=== PATIENT | female | born 1945 | race Caucasian/White ===

== ENCOUNTER 2019-10-03 14:17 | Outpatient (CLI) | payer MEDICARE, SELFPAY ==
[2019-10-16 10:43] LABS: Miscellaneous Test See Scanned Lab Rpt
== END 2019-10-03 14:18 | disposition home or self-care (01) ==
LOC: ONCMED 14:24
PROVIDERS: PCP Family Medicine; Referring Provider Surgery; Visit Provider Internal Medicine Hematology & Oncology
DX: C18.8 Malignant neoplasm of overlapping sites of colon (principal); C77.2 Secondary and unspecified malignant neoplasm of intra-abdominal lymph nodes; Z90.49 Acquired absence of other specified parts of digestive tract
CPT/HCPCS: 88341; 88342; 99205

== ENCOUNTER 2019-10-17 08:45 | Outpatient (CLI) | payer MEDICARE, SELFPAY ==
[2019-10-17 15:20] LABS: Basophils % 0.5 %; Eosinophils % 0.7 %; Hemoglobin 13.8 g/dL (11.5-15.3); Lymphocytes # 1.9 10^3/uL (0.8-4.8); Lymphocytes % 31.9 %; Mean Corpuscular HGB Conc 32.1 g/dL (30.0-36.0); Mean Corpuscular Volume 102.9 fL (81-99); Mean Platelet Volume 12.9 fL (7.4-10.4); Monocytes # 0.4 10^3/uL (0.2-0.9); Monocytes % 7.1 %; Neutrophils # 3.5 10^3/uL (1.8-7.7); Neutrophils % 59.5 %; Nucleated Red Blood Cells % 0 %; Platelet Count 162 10^3/cmm (130-400); Red Blood Count 4.18 10^6/uL (4.1-5.3); Red Cell Distribution Width 13.4 % (12.1-15.1); White Blood Count 5.9 10^3/uL (4.0-10.0)
[2019-10-17 19:50] LABS: Alanine Aminotransferase 15 U/L (0-33); Albumin Level 4.2 g/dL (3.5-5.2); Alkaline Phosphatase 69 IU/L (35-105); Anion Gap 19.9 (5-19); Aspartate Amino Transferase 22 U/L (0-32); Blood Urea Nitrogen 12 mg/dL (8-23); Calcium 9.9 mg/dL (8.5-10.5); Carbon Dioxide 24 mmol/L (22-29); Chloride 103 mmol/L (98-107); Globulin 3.4 g/dL (1.3-4.6); Glucose 102 mg/dL (65-115); Potassium 3.9 mmol/L (3.5-5.1); Sodium 143 mmol/L (136-145); Total Bilirubin 0.7 mg/dL (0.15-1.2); Total Protein 7.6 g/dL (6.6-8.7)
== END 2019-10-17 08:46 | disposition home or self-care (01) ==
LOC: ONCMED 16:01
PROVIDERS: PCP Family Medicine; Visit Provider Internal Medicine Hematology & Oncology
DX: C18.8 Malignant neoplasm of overlapping sites of colon (principal); C77.2 Secondary and unspecified malignant neoplasm of intra-abdominal lymph nodes
CPT/HCPCS: 80053; 85025

== ENCOUNTER 2019-10-18 11:58 | Outpatient (CLI) | payer MEDICARE, SELFPAY ==
--- NOTE | 2019-10-18 15:05 | N.ONRAD NP_ITS ---
Radiation Oncology New Patient Visit Patient: Meera Begum MR#: [id number] : 1945> Age: 73> Sex: Female> Dictated by: Dr. Jose Angel Ricks Date of Service: 10/18/2019 Referring Physician(s) : Dr. 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 Previous Treatment: Right hemicolectomy and cholecystectomy on September 05, 2019 Chief Complaint: Colon cancer History of Present Illness: This is a 73 y/o woman who presented with abdominal pain, nausea for 1 month. She went to the ER of [facility] in [facility]. Further work-up revealed subacute cholecystitis with cholelithiasis as well as a distal small bowel obstruction. Colonoscopy on September 04, 2019 showed a cecum mass causing obstruction. CT of abdomen pelvis showed no liver metastasis according to Dr. Mckinney's note. The patient underwent right hemicolectomy and cholecystectomy on September 05, 2019. Surgical pathology showed invasive moderately differentiated colonic adenocarcinoma involving cecum, ileocecal valve and appendiceal lumen. Neoplasm invades through the entire bowel wall into the pericolonic adipose tissue, focally involving inked serosal margins. Proximal and distal margin of resection are free of tumor. Metastatic adenocarcinoma involved 2 of 24 pericolonic lymph nodes. Genetic testing showed mismatch repair genes are intact. The patient has recovered from the surgery well with no complications. She is doing well and denies abdominal pain, nausea, vomiting, diarrhea, constipation or rectal bleeding. She was evaluated by Dr. Mckinney for adjuvant chemotherapy. She was referred to us for consideration of adjuvant radiotherapy due to positive surgical margins. Current Medications: Multivitamin Adult. Allergies: Sulfa Antibiotics. Medical History: - Anxiety (with panic attacks) , - cholethiasis, - history of renal calculi, - white coat syndrome. No history of collagen vascular disease. No previous radiation therapy. Surgical History: Cholecystectomy, colonoscopy on 09/04/2019, right hemicolectomy, tonsillectomy and tubal ligation. Family History: Father is at age 72 having experienced Pancreatic Cancer. Mother is at age 88 having experienced dementia. Social History: Last screened on 10/18/2019 - Never smoked. Last screened on 10/03/2019 - Never drank. Patient indicated access to the following support systems: Adequate transportation available for expected visits, Lives in an assisted living environment, Lives with spouse, significant other, family, or friends, and No support system exists. Patient indicated the following nutritional habits: Regular meals. Patient indicated participation in the following forms of activity: Light exercise. Review of Systems: Constitutional - Denies lack of appetite, fatigue, fever, night sweats and rigors / chills. Eyes - Denies blurred vision. ENMT - Denies dysphagia, ear pain, mouth dryness, stomatitis and altered taste. Neck - Denies neck pain. Integumentary - Denies rash. Breasts - Denies pain. Cardiovascular - Denies arrhythmias, chest pain and edema. Respiratory - Complains of cough which happens occasionally. Denies dyspnea and wheezing. Gastrointestinal - Denies abdominal pain, constipation, diarrhea, heartburn / dyspepsia, melena / GI bleeding, nausea and vomiting. Genitourinary (F) - Complains of nocturia gets up about 1 time per night. Denies dysuria, frequency, urgency, vaginal discharge / bleeding and vaginal spotting. Musculoskeletal - Complains of arthritis, bone pain on the tailbone from a fall many years ago. It happens if sitting too long and joint pain right hip. Denies muscle weakness. Neurologic - Denies dizziness, abnormal gait and headaches. Endocrine - Denies diabetes and thyroid disease. Hematologic/Lymphatic - Denies tender or enlarged lymph nodes.. Vital Signs: Performed on 10/18/2019 12:13 PM BMI - 21.8 kg/m2, Height - 65.00 in, Weight - 131.0 lbs, Temperature - 97.2 f, Pulse - 58, Respiration - 16, O2 Sat - 98 %, Pain - 0, Fatigue - 0 and BP - 176/ 78 mm(hg)(high/). Physical Exam: Pertinent to diagnosis and treatment. General: Alert and oriented x 3. No acute distress. HEENT: Normocephalic, atraumatic. EOMI ( Extraocular Movements Intact), PERRLA ( Pupils Equal, Round, Reactive to Light and Accommodation), Sclerae anicteric. Oral cavity is clear without lesions, masses or ulcers. NECK: Supple without supraclavicular or jugular lymphadenopathy. LUNGS: Clear to auscultation bilaterally without rales, rhonchi or wheeze. HEART: Regular rate and rhythm, normal S1 and S2 without murmur, gallop or rub. MUSCULOSKELETAL: No tenderness or percussion pain over the axial skeleton, scapulae or pelvis. ABDOMEN: Soft, nontender, nondistended without masses or organomegaly. Well-healed surgical incisions in the abdomen. Bowel sounds are present. EXTREMITIES: No peripheral edema is identified. Limited motor and sensory examination are grossly intact and symmetric bilaterally. NEUROLOGIC: Cranial nerves II ???XII are grossly intact. Normal sensation, strength 5/5 in all extremities, normal gait, no ataxia. Performance Status: 0 - Fully active, able to carry on all predisease activities without restrictions. (ECOG) Pathology: Invasive moderately differentiated colonic adenocarcinoma involving cecum, ileocecal valve and appendiceal lumen Lab: None pending Imaging: See HPI Impression: The patient is a 73 year old woman with recently diagnosed pT4, pN1, M0 invasive moderately differentiated adenocarcinoma involving cecum status post right beni-colectomy. Surgical serosa margins were positive. Plan: I recommended adjuvant radiotherapy to the tumor bed as indicated by the positive surgical margin. Dr. Mckinney and I discussed about the sequencing of adjuvant chemotherapy and radiotherapy. We reached a consensus that patient should receive chemotherapy first followed by adjuvant radiotherapy. I went over the procedure, benefit, risks and potential side effects of radiation therapy with the patient. She will come back to see us and start adjuvant radiotherapy after chemotherapy. Signed by: 10/18/2019 3:03:29 PM <<Signature on File>> CPT Code: CPT Code: Signed By: Dr. Jose Angel Ricks, 10/18/2019 3:03:30 PM <<Signature on File>>
--- NOTE | 2019-10-18 16:52 | ONC FU_ITS ---
Dr. Mckinney follow up note Patient: Meera Begum Unit #: [id number]: 1945 Dicatated By: Erick Mckinney M.D.Date of Visit:Oct 18, 2019 Onc Med Follow-up/Prog Note History of Present Illness: Mrs. Merea Begum, is a 73-year-old female who in August 2019, was admitted to [facility] with abdominal pain, nausea, underwent evaluation to emergency room, was found to have correlated PSA is and also partial distal small bowel obstruction, surgery was consulted patient underwent colonoscopy on 09/04/2019, and she was found to have cecal mass and remaining exam was unremarkable. As per patient, also underwent CT scan of abdomen pelvis which showed no liver metastases . Subsequently underwent right hemicolectomy/cholecystectomy on 09/05/2019 and final pathology report showed invasive moderately differentiated colonic adenocarcinoma involving cecum, ileocecal valve, appendiceal lumen. Neoplasm invades through the entire bowel wall into the pericolonic adipose tissue, focally involved inked serosal margin. Proximal and distal margins of resection are free of neoplasm. 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 / lymph nodes were removed, showed metastatic disease. Patient tolerated procedure well Her lab workup done on 09/13/2019 shows white blood count 8.4 hemoglobin 12.6 crit 38.9 platelets 193,000, CMP within normal limit except glucose 154. Because of posterior surgical margin patient was referred to radiation oncology and Dr. Ricks recommended radiation therapy after patient completed her adjuvant chemotherapy Came for follow-up, denies any specific complaints, no fever or chills, no nausea or vomiting, no diarrhea constipation, overall feeling well but patient is concerned about radiation therapy and cost involved and similarly cost involved with chemotherapy. Medications: Multivitamin Adult 1 Tablet Oral daily Allergies: Sulfa Antibiotics Review of Systems: Constitutional - Appetite is good and weight is stable. No fever, chills, hot flashes, or night sweats. Energy level is good, ENMT - No sinus congestion/drainage. No mouth sores. No sore throat or difficulty swallowing, Hematologic/Lymphatic - No abnormal bruising or bleeding, Respiratory - No shortness of breath. No cough. No pleuritic pain or hemoptysis, Cardiovascular - No angina pain. No palpitations, Gastrointestinal - No nausea or vomiting. No heartburn or acid reflux. No diarrhea or constipation. No blood in the stool or black stools, Genitourinary (F) - No dysuria or hematuria. No urinary frequency. No urgency or incontinence, Musculoskeletal - Occasional pain in right hip, Neurologic - No headache or dizziness. No numbness/paresthesias or other focal neurologic symptoms, Psychiatric - No anxiety or depression. No insomnia, Constitutional - Denies lack of appetite, fatigue, fever, night sweats and rigors / chills, Eyes - Denies blurred vision, ENMT - Denies dysphagia, ear pain, mouth dryness, stomatitis and altered taste, Neck - Denies neck pain, Integumentary - Denies rash, Breasts - Denies pain, Cardiovascular - Denies arrhythmias, chest pain and edema, Respiratory - Complains of cough which happens occasionally. Denies dyspnea and wheezing, Gastrointestinal - Denies abdominal pain, constipation, diarrhea, heartburn / dyspepsia, melena / GI bleeding, nausea and vomiting, Genitourinary (F) - Complains of nocturia gets up about 1 time per night. Denies dysuria, frequency, urgency, vaginal discharge / bleeding and vaginal spotting, Musculoskeletal - Complains of arthritis, bone pain on the tailbone from a fall many years ago. It happens if sitting too long and joint pain right hip. Denies muscle weakness, Neurologic - Denies dizziness, abnormal gait and headaches, Endocrine - Denies diabetes and thyroid disease, Hematologic/Lymphatic - Denies tender or enlarged lymph nodes. Vital Signs: Performed on Oct 18, 2019 12:13 Height - 65.00 in Weight - 131.0 lbs Temperature - 97.2 F Pulse - 58 Respiration - 16 BP - 176/78 mm(hg) (HIGH) O2 Sat - 98 % Pain - 0 Fatigue - 0 Performed on Oct 18, 2019 12:13 BMI - 21.8 kg/m2 Performance Status: 0 - Fully active, able to carry on all predisease activities without restrictions. (ECOG) Physical Examination: ENMT - No oral exudates, ulcers, masses, thrush or mucositis. Oropharynx clear. Tongue normal, Respiratory - Lungs are clear to auscultation without rhonchi or wheezing, Cardiovascular - Regular rate and rhythm of heart, Abdomen - Non-tender, non-distended, Good bowel sounds. No guarding or rebound tenderness. No pulsatile masses, Extremities - no edema. Lab/Imaging: Most recent lab results are not available for this patient. Impression: Invasive moderately differentiated adenocarcinoma involving cecum per right hemicolectomy done on 09/05/2019 Final pathology report showed invasive moderately differentiated colonic adenocarcinoma involving cecum, ileocecal valve, appendiceal lumen. Neoplasm invades through the entire bowel wall into the pericolonic adipose tissue, focally involving inked serosal margins T4a 2 out of 24 lymph nodes positive for metastatic disease pN1 next Stage IIIB MSI/MMR status intact Plan: Discussed with patient regarding her concern and questions in her MSI/MMR status, which is intact. Treatment options were discussed again because of positive surgical margins patient may benefit from radiation therapy, patient has seen Dr. Ricks today and is concerned about cost involved and was requesting if any other options available including reexcision. At this point we will discuss with the pathologist to reconfirm the surgical margin status and also discuss with her surgeon Dr. Hoa Glass regarding possibility of reexcision, if possible, in that case patient will not need radiation Role of adjuvant chemotherapy especially in elderly patient was also discussed patient, because of positive margin, lymph node involvement she is a high risk, stage IIIB disease treatment options include FOLFOX every 2 weeks ???12 or capeox every 3 weeks ???8 or 4 as literature has shown at short-term follow-up non-inferior to of 4 cycles versus 8 cycles of capeox . Or Xeloda 1000 mg/m??? by mouth twice a day for 2 weeks on 1 week off ???8 cycles. And also in elderly patient adding oxaliplatin to 5-FU may not yield additional benefit especially in low risk patient but patient is a high risk, and those patient literature has shown oxaliplatin addition to 5-FU may benefit. We will discuss her case with pathology as mentioned above regarding surgical margin status and with her surgeon for possibility of reexcision and plan accordingly and based on cost effectiveness, and patient preference, will choose a chemotherapy regimen.. Patient return to clinic in 1 week for further discussion. Signed By: Erick Mckinney M.D. <<Signature on File>>
== END 2019-10-18 11:59 | disposition home or self-care (01) ==
LOC: ONCMED 11:59
PROVIDERS: PCP Family Medicine; Visit Provider Radiology Radiation Oncology
DX: C18.8 Malignant neoplasm of overlapping sites of colon (principal); C78.2 Secondary malignant neoplasm of pleura; F41.0 Panic disorder [episodic paroxysmal anxiety]; Z90.49 Acquired absence of other specified parts of digestive tract; Z87.442 Personal history of urinary calculi
CPT/HCPCS: 99205; 99214

== ENCOUNTER 2019-10-24 09:36 | Outpatient (CLI) | payer MEDICARE, SELFPAY ==
--- NOTE | 2019-10-24 10:50 | ONC FU_ITS ---
Dr. Mckinney follow up note Patient: Meera Begum Unit #: [id number]: 1945 Dicatated By: Erick Mckinney M.D.Date of Visit:Oct 24, 2019 Onc Med Follow-up/Prog Note History of Present Illness: Mrs. Meera Begum, is a 73-year-old female who in August 2019, was admitted to [facility] with abdominal pain, nausea, underwent evaluation to emergency room, was found to have correlated PSA is and also partial distal small bowel obstruction, surgery was consulted patient underwent colonoscopy on 09/04/2019, and she was found to have cecal mass and remaining exam was unremarkable. As per patient, also underwent CT scan of abdomen pelvis which showed no liver metastases . Subsequently underwent right hemicolectomy/cholecystectomy on 09/05/2019 and final pathology report showed invasive moderately differentiated colonic adenocarcinoma involving cecum, ileocecal valve, appendiceal lumen. Neoplasm invades through the entire bowel wall into the pericolonic adipose tissue, focally involved inked serosal margin. Proximal and distal margins of resection are free of neoplasm. 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 /24 lymph nodes were removed, showed metastatic disease. Patient tolerated procedure well Her lab workup done on 09/13/2019 shows white blood count 8.4 hemoglobin 12.6 crit 38.9 platelets 193,000, CMP within normal limit except glucose 154. Because of posterior surgical margin patient was referred to radiation oncology and Dr. Ricks recommended radiation therapy after patient completed her adjuvant chemotherapy Case was discussed with pathologist regarding positive serosal margin and they will review and get back to us. Came for follow-up, denies any specific complaints, no nausea vomiting no fever no chills no diarrhea constipation no mouth sores no jaundice. Medications: Multivitamin Adult 1 Tablet Oral daily Allergies: Sulfa Antibiotics Review of Systems: Constitutional - Appetite is good and weight is stable. No fever, chills, hot flashes, or night sweats. Energy level is good, ENMT - No sinus congestion/drainage. No mouth sores. No sore throat or difficulty swallowing, Hematologic/Lymphatic - No abnormal bruising or bleeding, Respiratory - No shortness of breath. No cough. No pleuritic pain or hemoptysis, Cardiovascular - No angina pain. No palpitations, Gastrointestinal - No nausea or vomiting. No heartburn or acid reflux. No diarrhea or constipation. No blood in the stool or black stools, Genitourinary (F) - No dysuria or hematuria. No urinary frequency. No urgency or incontinence, Musculoskeletal - Occasional pain in right hip, Neurologic - No headache or dizziness. No numbness/paresthesias or other focal neurologic symptoms, Psychiatric - No anxiety or depression. No insomnia. Vital Signs: Performed on Oct 24, 2019 09:49 Height - 65.00 in Weight - 131.0 lbs BSA - 1.65 sq.m BMI - 21.80 Temperature - 97.0 F (LOW) Pulse - 96 /min Respiration - 16 /min BP - 138/90 mm(hg) O2 Sat - 98 % Pain - 0 Fatigue - 1 Performance Status: 0 - Fully active, able to carry on all predisease activities without restrictions. (ECOG) Physical Examination: ENMT - No oral exudates, ulcers, masses, thrush or mucositis. Oropharynx clear. Tongue normal, Respiratory - Lungs are clear to auscultation without rhonchi or wheezing, Cardiovascular - Regular rate and rhythm of heart, Abdomen - Non-tender, non-distended,Good bowel sounds. No guarding or rebound tenderness. No pulsatile masses, Extremities - no edema. Lab/Imaging: Test performed on Oct 17, 2019 08:45 Sodium 143 mmol/L Potassium 3.9 mmol/L Chloride 103 mmol/L CO2 24 mmol/L Anion Gap 19.9 BUN 12 mg/dL Creatinine 0.6 mg/dL Cr Clearance (Est) 77.5000 mL/min Glucose 102 mg/dL Calcium 9.9 mg/dL Protein, Total 7.6 g/dL Albumin 4.2 g/dL Globulin 3.4 g/dL Bilirubin, Total 0.7 mg/dL ALT (SGPT) 15 U/L AST (SGOT) 22 U/L Alkaline Phosphatase 69 IU/L WBC 5.9 10 3/uL RBC 4.18 10 6/uL HGB 13.8 g/dL HCT 43.0 % MCV 102.9 fL MCH 33.0 pg MCHC 32.1 g/dL RDW 13.4 % Platelet Count 162 10 3/cmm MPV 12.9 fL Neutrophils 3.5 10 3/uL Lymphocytes 1.9 10 3/uL Monocytes 0.4 10 3/uL Eosinophils 0.0 10 3/uL Basophils 0.0 10 3/uL Neutrophil % 59.5 % Lymphocyte % 31.9 % Monocyte % 7.1 % Eosinophil % 0.7 % Basophils % 0.5 % Impression: Invasive moderately differentiated adenocarcinoma involving cecum per right hemicolectomy done on 09/05/2019 Final pathology report showed invasive moderately differentiated colonic adenocarcinoma involving cecum, ileocecal valve, appendiceal lumen. Neoplasm invades through the entire bowel wall into the pericolonic adipose tissue, focally involving inked serosal margins T4a 2 out of 24 lymph nodes positive for metastatic disease pN1 next Stage IIIB MSI/MMR status intact Plan: Discussed with patient regarding disease status and treatment options, case was also discussed with the pathologist regarding positive serosal margin mentioned in final pathology report. And he will review it again and get back to us in the meantime we'll proceed with adjuvant chemotherapy, patient was concerned about copayments and based on cost and efficacy, oxaliplatin/capecitabine would be an appropriate choice. All the side effects possible benefits associated with Xeloda/oxaliplatin were discussed including but not limited to bone marrow suppression, peripheral neuropathy especially with oxaliplatin, GI toxicity, e.g. mild sore, diarrhea, jaundice and [id number] syndrome especially with Xeloda were mentioned further teaching will be done by chemotherapy nurse. We'll consider oxaliplatin 130 mg/m??? every 3 weeks and Xeloda 850 mg/m??? twice a day day 1 through 14 and repeat every 21 days We will consider minimum 4 cycles at least and if tolerated, will complete the recommended 8 cycles. Return to clinic 1 week after chemotherapy is initiated with CBC CMP Patient has poor venous access so we'll consider Port-A-Cath placement prior to the treatment. Signed By: Erick Mckinney M.D. <<Signature on File>>
== END 2019-10-24 09:37 | disposition home or self-care (01) ==
LOC: ONCMED 09:38
PROVIDERS: PCP Family Medicine; Visit Provider Internal Medicine Hematology & Oncology
DX: C18.8 Malignant neoplasm of overlapping sites of colon (principal); C77.2 Secondary and unspecified malignant neoplasm of intra-abdominal lymph nodes; Z79.899 Other long term (current) drug therapy; Z90.49 Acquired absence of other specified parts of digestive tract
CPT/HCPCS: 99214

== ENCOUNTER 2019-11-29 08:50 | Outpatient (RCR) | payer MEDICARE, SELFPAY ==
[2019-11-07 09:44] LABS: Basophils % 0.3 %; Eosinophils % 0.1 %; Hematocrit 40.6 % (37.0-47.0); Hemoglobin 13.6 g/dL (11.5-15.3); Lymphocytes % 12.3 %; Mean Corpuscular HGB Conc 33.5 g/dL (30.0-36.0); Mean Corpuscular Hemoglobin 33.4 pg (28.0-34.0); Mean Corpuscular Volume 99.8 fL (81-99); Mean Platelet Volume 11.9 fL (7.4-10.4); Monocytes # 0.5 10^3/uL (0.2-0.9); Neutrophils # 6.5 10^3/uL (1.8-7.7); Nucleated Red Blood Cells % 0 %; Platelet Count 147 10^3/cmm (130-400); Red Blood Count 4.07 10^6/uL (4.1-5.3); Red Cell Distribution Width 12.7 % (12.1-15.1)
[2019-11-07 09:57] LABS: Alanine Aminotransferase 13 U/L (0-33); Albumin Level 4.3 g/dL (3.5-5.2); Alkaline Phosphatase 62 IU/L (35-105); Anion Gap 15.7 (5-19); Aspartate Amino Transferase 18 U/L (0-32); Blood Urea Nitrogen 12 mg/dL (8-23); Calcium 9.7 mg/dL (8.5-10.5); Carbon Dioxide 24 mmol/L (22-29); Chloride 105 mmol/L (98-107); Globulin 2.9 g/dL (1.3-4.6); Glucose 141 mg/dL (65-115); Potassium 3.7 mmol/L (3.5-5.1); Sodium 141 mmol/L (136-145); Total Bilirubin 0.4 mg/dL (0.15-1.2); Total Protein 7.2 g/dL (6.6-8.7)
[2019-11-07] MEDS: dextrose 5% 250 ML 999 ML IV (10:15)
[2019-11-07 10:42] LABS: Carcinoembryonic Antigen 1.6 ng/mL (0.0-4.7)
[2019-11-20 13:22] LABS: Basophils % 0.1 %; Eosinophils % 0.1 %; Hematocrit 39.7 % (37.0-47.0); Hemoglobin 13.6 g/dL (11.5-15.3); Lymphocytes # 1.3 10^3/uL (0.8-4.8); Lymphocytes % 17.7 %; Mean Corpuscular HGB Conc 34.3 g/dL (30.0-36.0); Mean Corpuscular Hemoglobin 32.8 pg (28.0-34.0); Mean Corpuscular Volume 95.7 fL (81-99); Mean Platelet Volume 12.1 fL (7.4-10.4); Monocytes # 0.6 10^3/uL (0.2-0.9); Monocytes % 8.3 %; Neutrophils # 5.4 10^3/uL (1.8-7.7); Neutrophils % 73.7 %; Nucleated Red Blood Cells % 0 %; Platelet Count 115 10^3/cmm (130-400); Red Blood Count 4.15 10^6/uL (4.1-5.3); Red Cell Distribution Width 11.9 % (12.1-15.1); White Blood Count 7.3 10^3/uL (4.0-10.0)
[2019-11-20 13:40] LABS: Alanine Aminotransferase 17 U/L (0-33); Albumin Level 4.4 g/dL (3.5-5.2); Alkaline Phosphatase 65 IU/L (35-105); Anion Gap 13.4 (5-19); Aspartate Amino Transferase 29 U/L (0-32); Blood Urea Nitrogen 13 mg/dL (8-23); Calcium 9.7 mg/dL (8.5-10.5); Carbon Dioxide 26 mmol/L (22-29); Chloride 107 mmol/L (98-107); Globulin 2.9 g/dL (1.3-4.6); Glucose 127 mg/dL (65-115); Osmolality Calculated 294 mOsm/kg (285-295); Potassium 3.4 mmol/L (3.5-5.1); Sodium 143 mmol/L (136-145); Total Bilirubin 0.6 mg/dL (0.15-1.2); Total Protein 7.3 g/dL (6.6-8.7)
--- NOTE | 2019-11-20 17:06 | ONC FU_ITS ---
Judd [facility] Patient Note Patient: Meera Begum Unit #: [id number]: 1945 Dictated By: Paula FineDate of Visit: Nov 20, 2019 Onc MED Follow-Up/Prog Note Chief Complaint: Adenocarcinoma of the cecum History of Present Illness: Mrs. Begum is a 73-year-old female who in August 2019, was admitted to [facility] in [facility] with abdominal pain and nausea. She had had a two history of dyspeptic symptoms as well as a gurgling sensation in the upper abdomen. She had some pain in the right upper quadrant as well. She presented with nausea but no vomiting or diarrhea. She states she had not had constipation prior to that admission and denied any dark tarry stools. She underwent evaluation in the emergency room, was found to have cholelithiasis however her CT of the abdomen pelvis showed masslike thickening at the ilio cecal valve. This was causing a proximal partial small bowel obstruction. surgery was consulted patient underwent colonoscopy on 09/04/2019, and she was found to have cecal mass and remaining exam was unremarkable. She did have a small bowel series on 09/02/2019. There was no evidence of significant small bowel obstruction as contrast passed from the stomach and small bowel into the colon within 1 hour (normal transit time is within 3 hours). The patient's known iliac mass was not well demonstrated on that study. A colonoscopy was recommended and performed to the cecum on 09/04/[address] Fernandez. Postop diagnosis was cecal mass. Dr. Fernandez recommended right hemicolectomy and an open cholecystectomy at the same time. Mrs. Begum underwent right hemicolectomy and ileocolonic anastomosis, cholecystectomy for cecal mass and cholelithiasis on 09/05/2019. On postop day 4 she still had no bowel sounds and was having some pain at the superior portion of her incision. She was diagnosed with postop ileus and TPN was started. Mrs. Begum was discharged from [facility] on September 15, 2019 with a discharge diagnosis of acute cholelithiasis, partial bowel obstruction secondary to cecal mass and transmural adenocarcinoma of the colon with 2+ lymph nodes. The pathology report from 09/05/2019 reports: cecum: Ascending colon and attached terminal ileum (Joaquin ileocolectomy) 1. Invasive moderately differentiated colonic adenocarcinoma involving the cecum, ileocecal valve and appendiceal lumen. 2 neoplasm invades to the entire bowel wall into the pericolonic adipose tissue, focally involving linked serosal margins. 3 proximal and distal margins of the resection are free of neoplasm. 4 large tubulovillous villous adenoma precursor lesion identified within the invasive tumor. 5. Lymph nodes pericolonic total of 24 were removed and 2 revealed metastatic adenocarcinoma. The gallbladder just showed chronic cholecystitis no evidence of malignancy. Colonic mucosa tissue and anastomosis 1. Benign segment of large bowel, clinically anastomotic tissue with no tumor seen. 2/24 lymph nodes were removed, showed metastatic disease. Tumor site was felt to be cecum/ileocecal valve. Specimen integrity was intact. Histological type was adenocarcinoma histological grade G2, moderately differentiated. Tumor extension tumor invades through the muscularis precordia. Margins invasive carcinoma involves the inked serosal surface of the cecal focally. Mucosal margins uninvolved by invasive adenocarcinoma 13 cm proximal and 20 cm to distal. Pathologic stage classification per the [facility] report on 09/05/2019 was pT4a, pN1, pMX. Her lab workup done on 09/13/2019 shows white blood count 8.4 hemoglobin 12.6 crit 38.9 platelets 193,000, CMP within normal limit except glucose 154. Because of posterior surgical margin, Mrs Begum was referred to radiation oncology and Dr. Ricks recommended radiation therapy after she completed her adjuvant chemotherapy. She was then referred to Dr Mckinney. Dr Mckinney did discuss this case with pathologist regarding positive serosal margin and they will review and get back to us . He also requested Mismatch repair proteins on 10/10/2019.: MLH1 intact, MSH2 intact, MSH6 intact, PMS2 intact. Mrs Begum was offered treatment with oxaliplatin and Xeloda. She had port placement on October 30, [address] Fernandez at [facility] She stated her first cycle on 11/07/2019. She will be due to complete the Xeloda for this cycle after her dose tomorrow. Mrs Begum is here today for a make up visit-rescheduled from one scheduled last week. She states for the most part she has done really well. She does admit having trouble getting and staying asleep. She states that she tried the mild nausea medicine for sleep and it did not help, but she did not try lorazepam. She states she did have cold-induced swallowing discomfort on day 1 early day 2. She states she forgot she was exposed to drink anything cold and did try a smoothie and it felt like electric shocks/pokes down my throat or eye starts . That is completely resolved now. She is had no other neuropathy symptoms. She denies any hand-foot changes. She denies any mouth sores, sore throat or difficulty swallowing. She denies any diarrhea or constipation. She states that her hands feel tingly at times like she has gloves on hand has the same sensation in her feet but feels like she has socks on. She can massage between the finger and thumb and this resolves the tingling in her hands and if she resolves the discomfort around her feet she usually massages between her big toe and little toe adjoining it. She states her appetite is off and on. She is eating because she knows she has to. She is trying to do Ensure enhanced smoothie shakes. She states she will finish up her current dose of Xeloda on tomorrow's schedule. Her is disabled and she helps care for him as well. Her ECOG is 0. Past Medical History: Anxiety (with panic attacks) Cholethiasis History of renal calculi White coat syndrome Past Surgical History: Cholecystectomy Right hemicolectomy Tonsillectomy Tubal ligation Colonoscopy in 2019 Allergies: Sulfa Antibiotics Medications: Family History: Ms. Begum's mother at age 88: dementia. Ms. Begum's father at age 72: Pancreatic Cancer. Social History: Ms. Begum is and she is retired. Ms. Begum has never smoked. She has no history of drinking. Ms. Begum reports the following support systems: lives with spouse, significant other, family, or friends, lives in an assisted living environment, no support system exists, and adequate transportation available for expected visits. Her diet consists of regular meals. She indicates her activity level as: light exercise. Review Of Symptoms: Constitutional Denies fevers, chills, night sweats, excessive fatigue or weight loss. She states she has white coat syndrome and have for 20+ years . BP running 124/68 at home. She states she is not sleeping well but has not tried lorazepam. Allergic/Immunologic No reactions. Eyes Denies significant visual changes. No diplopia. No amaurosis. ENMT Denies changes in hearing, sore throat, mouth sores, difficulty or changes in swallowing ability, and/or sinus drainage. Endocrine No diabetes, thyroid disease or hormone replacement. Denies hot flashes or night sweats. Hematologic/Lymphatic Denies easy bruising or bleeding. The patient denies any tender or palpable lymph nodes. Respiratory Denies dyspnea on exertion, chest pain, cough or hemoptysis. Denies orthopnea. Cardiovascular Denies anginal chest pain, palpitations or orthopnea. Gastrointestinal Denies nausea, vomiting, diarrhea, GI bleeding, or constipation. Denies change in bowel habits and/or stool color, no heartburn or early satiety. Genitourinary (F) No hematuria, hesitancy, incontinence, vaginal bleeding, discharge or other problems with urination. Musculoskeletal Denies joint pain, swelling or redness. No decreased range of motion. Integumentary Denies chronic rashes, inflammation, ulcerations or skin changes. Neurologic Denies headache, blurred vision, and no areas of focal weakness or numbness. Normal gait. No sensory problems. Psychiatric Denies insomnia, depression, trevor or mood swings. Vital Signs: Performed on Nov 20, 2019 12:06 Height - 65.00 in Weight - 127.8 lbs (LOW) BSA - 1.64 sq.m BMI - 21.27 Temperature - 98.9 F (HIGH) Pulse - 65 /min Respiration - 16 /min BP - 212/73 mm(hg) (HIGH) O2 Sat - 96 % Pain - 0 Fatigue - 5,0 - Fully active, able to carry on all predisease activities without restrictions. (ECOG) Physical Examination: Constitutional Alert, oriented, no acute distress. Skin pink, warm and dry. Head Normocephalic; atraumatic. Eyes Conjunctivae and sclerae are clear and without icterus. Pupils are reactive and equal. ENMT No oral exudates, ulcers, masses, thrush or mucositis. Oropharynx clear. Tongue normal. Neck Supple without masses or thyromegaly. No jugular venous distension. Hematologic/Lymphatic No petechiae or purpura. No tender or palpable lymph nodes in the cervical or supraclavicular areas. Respiratory Lungs are clear to auscultation without rhonchi or wheezing. Cardiovascular Regular rate and rhythm of heart without murmurs,clicks, gallops or rubs. Chest Chest is symmetric without chest wall deformities. Port site is healing well. Back/Spine Non-tender to palpation. Extremities No visible deformities, no cyanosis, clubbing or edema. Musculoskeletal No tenderness or swelling, normal range of motion without obvious weakness. Integumentary No rashes or lesions. Neurologic No sensory or motor deficits, normal cerebellar function, normal gait. Psychiatric Alert and oriented times three. Coherent speech. Verbalizes understanding of our discussions today. Laboratory:Test performed on Nov 20, 2019 12:52 Sodium 143 mmol/L Potassium 3.4 mmol/L Chloride 107 mmol/L CO2 26 mmol/L Anion Gap 13.4 BUN 13 mg/dL Creatinine 0.5 mg/dL Cr Clearance (Est) 92.6000 mL/min Glucose 127 mg/dL Calcium 9.7 mg/dL Protein, Total 7.3 g/dL Albumin 4.4 g/dL Globulin 2.9 g/dL Bilirubin, Total 0.6 mg/dL ALT (SGPT) 17 U/L AST (SGOT) 29 U/L Alkaline Phosphatase 65 IU/L WBC 7.3 10 3/uL RBC 4.15 10 6/uL HGB 13.6 g/dL HCT 39.7 % MCV 95.7 fL MCH 32.8 pg MCHC 34.3 g/dL RDW 11.9 % Platelet Count 115 10 3/cmm MPV 12.1 fL Neutrophils 5.4 10 3/uL Lymphocytes 1.3 10 3/uL Monocytes 0.6 10 3/uL Eosinophils 0.0 10 3/uL Basophils 0.0 10 3/uL Neutrophil % 73.7 % Lymphocyte % 17.7 % Monocyte % 8.3 % Eosinophil % 0.1 % Basophils % 0.1 % Test performed on Nov 07, 2019 09:20 CEA 1.6 ng/mL Impression: Invasive moderately differentiated adenocarcinoma involving cecum per right hemicolectomy done on 09/05/2019 Final pathology report showed invasive moderately differentiated colonic adenocarcinoma involving cecum, ileocecal valve, appendiceal lumen. Neoplasm invades through the entire bowel wall into the pericolonic adipose tissue, focally involving inked serosal margins T4a 2 out of 24 lymph nodes positive for metastatic disease pN1 next Stage IIIB MSI/MMR status intact Dr Mckinney discussed with patient her disease status and treatment options. The case was also discussed with the pathologist regarding positive serosal margin mentioned in final pathology report. And he will review it again and get back to us in the meantime we elected to proceed with adjuvant chemotherapy, patient was concerned about copayments and based on cost and efficacy, oxaliplatin/capecitabine would be an appropriate choice. We'll consider oxaliplatin 130 mg/m??? every 3 weeks and Xeloda 850 mg/m??? twice a day day 1 through 14 and repeat every 21 days. We will consider minimum 4 cycles at least and if tolerated, will complete the recommended 8 cycles. She began her first cycle [facility] on 11/07/2019. She has tolerated it well thus far. Plan: 1. Continue with current plan of care this is day 15. She states she is due to stop her Xeloda tomorrow as she got started a day late last cycle. 2. Labs from November 12 were reviewed in detail and discussed with Ms. Scott. She was scheduled for follow-up that next day but was unable to make it. I did request day 15 labs just we can see where she nadirs. Her WBC on November 12 was 5.3, hemoglobin 14.3 platelets of 416,000 and potassium was normal creatinine was 0.6 and LFTs were normal. Her baseline CEA on November 06 was 1.6. 3. I did advise her she could try using lorazepam 1/2 tablet at bedtime for sleep and she may repeat that in our hour and a half if it is not helping her sleep and if that does not help her with the insomnia to call we will try something else. 4. She is due to finish up her 14 days of Xeloda tomorrow. 5. We will plan to see her back in follow-up in 1 week at which time she will be due to resume Xeloda and will be due for oxaliplatin... this will be cycle 2. 6. Mrs. Begum was instructed to contact us in interim should questions or problems arise. Signed By: Paula Fine-, [facility] Erick Mckinney MD <<Signature on File>>
== END 2019-11-29 09:20 | disposition home or self-care (01) ==
LOC: ONCMED 08:50
PROVIDERS: Internal Medicine Hematology & Oncology; PCP Family Medicine; Visit Provider Nurse Practitioner
DX: Z51.11 Encounter for antineoplastic chemotherapy (principal); C18.8 Malignant neoplasm of overlapping sites of colon; C77.2 Secondary and unspecified malignant neoplasm of intra-abdominal lymph nodes; Z79.899 Other long term (current) drug therapy; Z90.49 Acquired absence of other specified parts of digestive tract; Z87.442 Personal history of urinary calculi
CPT/HCPCS: 36591; 80053; 82378; 85025; 96367; 96413; 96415; 96523; 99214; J1100; J2469; J3490; J9263

== ENCOUNTER 2019-11-29 09:28 | Emergency (ER) | payer MEDICARE, SELFPAY ==
[2019-11-29] VITALS (12 sets, daily range): BP systolic 141–171; BP diastolic 90–108; PULSE 77–101; RESP 16–17; TEMP 36.5; O2SAT 94–99; BMI 20.8
--- NOTE | 2019-11-29 09:35 | W.ED.GENADLT ---
HPI - General Adult General: Chief complaint: Weakness Stated complaint: weakness, fever Time Seen by Provider: 11/29/19 09:34 Source: patient Mode of arrival: ambulatory Limitations: no limitations History of Present Illness: HPI narrative: Patient is a very nice 70-year-old female who presents to ED today at the request of the oncology department for evaluation prior to beginning chemotherapy treatments today. Patient tells me on Wednesday she was seen at [facility] ER for complaints of dehydration . When asked what symptoms she was specifically experiencing she tells me that she felt fatigued and drowsy. She was told that she was a bit clinically dehydrated and also had some low potassium. She was ultimately discharged home. She states that she returned to [facility] yesterday and was diagnosed with a UTI. She was prescribed Keflex which she has not filled. Patient states she went to the oncology department today because she was supposed to have a chemotherapy treatment (patient with history of adenocarcinoma of cecum, ileocecal valve, appendiceal lumen). Based on these previous visits to [facility] they wanted patient evaluated in our ED. patient tells me she is not having any abdominal pain but does describe a very mild abdominal discomfort that she describes as a wave across her abdomen . She reports no nausea or vomiting. She states over the past 2 to 3 days she has had somewhat watery stools (reports 7-8 total episodes of diarrhea). She has been treating with Imodium per her PCPs recommendations. She has not been running fevers. She denies chest pain, shortness of breath, difficulty breathing, cough. Onset (ago): day(s) Associated symptoms: Deny chest pain, dyspnea, headache(s), malaise, nausea, rash, palpitations, syncope or vomiting Review of Systems Const: Reports: fatigue; Denies: fever, chills, body aches, change in weight or malaise Eyes: Denies: change in vision, blurry vision or photophobia ENMT: Denies: throat pain, uvular edema or painful swallowing Card: Denies: chest pain, palpitations, irregular heart rhythm, edema, lightheadedness, syncope, pre-syncope, shortness of breath on exertion or shortness of breath when lying down Resp: Denies: shortness of breath, productive cough, coughing up blood or chest congestion GI: Reports: abdominal pain ( discomfort ) and diarrhea; Denies: nausea, vomiting, vomiting blood, blood in stool, black tarry stool, mucus in stool, white/light colored stool or fatty stool : Denies: flank pain, difficulty urinating, painful urination, urinary frequency, urinary urgency or urinary hesitancy Musc: Denies: neck pain or back pain Skin/Breast: Denies: rash Neuro: Denies: headache, numbness in extremities, weakness in extremities or changes in sensation PFSH ED PFSH: Social History Smoking and tobacco status: never smoked Physical Exam Const: COMMON NORMALS: no apparent distress, average body habitus, oriented x3, no limitations, healthy appearing, alert and well nourished HENMT: COMMON NORMALS: normocephalic and head/scalp atraumatic HEAD & SCALP: normocephalic and atraumatic THROAT: no uvular edema Lymph: LYMPHATIC: no lymphadenopathy noted Resp: COMMON NORMALS: normal respiratory effort and clear to auscultation bilaterally AUSCULTATION: clear to auscultation bilaterally Cardio: COMMON NORMALS: regular rate and regular rhythm RATE: regular rate RHYTHM: regular rhythm GI: COMMON NORMALS: normal to inspection, nondistended, normoactive bowel sounds, soft to palpation, non-tender, no hepatosplenomegaly and no masses PALPATION: Yes soft and Yes no hepatosplenomegaly : COMMON NORMALS: Yes no CVA tenderness BLADDER/KIDNEY EXAM: Yes no CVA tenderness Back/Pelvis: COMMON NORMALS: no CVA tenderness Extremity: COMMON NORMALS: normal to inspection Neuro: COMMON NORMALS: oriented x3 SENSORIUM/ORIENTATION: Yes alert Skin: COMMON NORMALS: no rashes or lesions noted GENERAL SKIN EXAM: no rashes or lesions noted Course Consultations: Consultation #1: Dr. Mckinney-recommends admit to obs for IV hydration and abx for dx of infectious enteritis based on her diarrhea and fevers; pt denies fevers to me and she is afebrile here; Dr. Mckinney states she had a fever of 100.1 while over at oncology Spoke to Dr. Mcrae about Dr. Mckinney's recommendations. She has no signs of dehydration. Electrolytes are normal. She is able to tolerate PO fluids and meds. Dr. Mcrae recommends CT scan. This showed gastroenteritis. He then called Dr. Mckinney to tell him patient does not meet inpatient criteria. We will treat as outpt with PO Cipro 500mg BID x 7 days. Vital Signs: Vital signs: Vital Signs Temperature 97.7 F 11/29/19 09:33 Pulse Rate 80 11/29/19 12:30 Respiratory Rate 16 11/29/19 12:07 Blood Pressure 143/92 11/29/19 12:30 Pulse Oximetry 95 11/29/19 12:30 [facility] - General Adult Lab Data: Labs: Lab Results 11/29/19 11/29/19 11/29/19 Range/Units 09:51 09:59 09:59 WBC 4.3 (4.0-10.0) 10^3/ uL RBC 3.70 L (4.1-5.3) 10^6/u L Hgb 12.3 (11.5-15.3) g/dL Hct 36.0 L (37.0-47.0) % MCV 97.3 (81-99) fL MCH 33.2 (28.0-34.0) pg MCHC 34.2 (30.0-36.0) g/dL RDW 13.9 (12.1-15.1) % Plt Count 104 L (130-400) 10^3/c mm MPV 11.0 H (7.4-10.4) fL Neut % (Auto) 50.7 % Lymph % (Auto) 25.3 % [place] % (Auto) 22.6 % Eos % (Auto) 0.7 % Baso % (Auto) 0.5 % Neut # (Auto) 2.2 (1.8-7.7) 10^3/u L Lymph # (Auto) 1.1 (0.8-4.8) 10^3/u L [place] # (Auto) 1.0 H (0.2-0.9) 10^3/u L Eos # (Auto) 0.0 (0.0-0.8) 10^3/u L Baso # (Auto) 0.0 (0.0-0.1) 10^3/u L Nucleated RBC % (a uto) 0 % Nucleated RBCs # 0.0 /100WBC Sodium 142 (136-145) mmol/L Potassium 3.5 (3.5-5.1) mmol/L Chloride 107 (98-107) mmol/L Carbon Dioxide 22 (22-29) mmol/L Anion Gap 16.5 (5-19) BUN 6 L (8-23) mg/dL Creatinine 0.5 (0.5-0.9) mg/dL Glucose 111 (65-115) mg/dL Calculated Osmolal ity 290 (285-295) mOsm/k g Calcium 9.4 (8.5-10.5) mg/dL Magnesium (1.7-2.3) mg/dL Total Bilirubin 0.6 (0.15-1.2) mg/dL AST 26 (0-32) U/L ALT 19 (0-33) U/L Alkaline Phosphata se 54 (35-105) IU/L Total Protein 6.4 L (6.6-8.7) g/dL Albumin 3.9 (3.5-5.2) g/dL Globulin 2.5 (1.3-4.6) g/dL Lipase 23 (13-60) U/L Urine Color Yellow (Yellow) Urine Appearance Clear (CLEAR) Urine pH 6.5 (5-7) Ur Specific Gravit y 1.010 (1.005-1.030) Urine Protein Neg (Negative) Urine Glucose (UA) Norm (Normal) Urine Ketones 1+ H (Negative) Urine Blood Neg (Negative) Urine Nitrate Negative (Negative) Urine Bilirubin Neg (NEGATIVE) Urine Urobilinogen Norm (Negative) mg/dL Ur Leukocyte Sivan ase Negative (Negative) Influenza Type A A g (Negative) POC Influenza B Ag (Negative) 11/29/19 11/29/19 Range/Units 09:59 10:04 WBC (4.0-10.0) 10^3/ uL RBC (4.1-5.3) 10^6/u L Hgb (11.5-15.3) g/dL Hct (37.0-47.0) % MCV (81-99) fL MCH (28.0-34.0) pg MCHC (30.0-36.0) g/dL RDW (12.1-15.1) % Plt Count (130-400) 10^3/c mm MPV (7.4-10.4) fL Neut % (Auto) % Lymph % (Auto) % Stonewall % (Auto) % Eos % (Auto) % Baso % (Auto) % Neut # (Auto) (1.8-7.7) 10^3/u L Lymph # (Auto) (0.8-4.8) 10^3/u L [place]wall # (Auto) (0.2-0.9) 10^3/u L Eos # (Auto) (0.0-0.8) 10^3/u L Baso # (Auto) (0.0-0.1) 10^3/u L Nucleated RBC % (a uto) % Nucleated RBCs # /100WBC Sodium (136-145) mmol/L Potassium (3.5-5.1) mmol/L Chloride (98-107) mmol/L Carbon Dioxide (22-29) mmol/L Anion Gap (5-19) BUN (8-23) mg/dL Creatinine (0.5-0.9) mg/dL Glucose (65-115) mg/dL Calculated Osmolal ity (285-295) mOsm/k g Calcium (8.5-10.5) mg/dL Magnesium 2.1 (1.7-2.3) mg/dL Total Bilirubin (0.15-1.2) mg/dL AST (0-32) U/L ALT (0-33) U/L Alkaline Phosphata se (35-105) IU/L Total Protein (6.6-8.7) g/dL Albumin (3.5-5.2) g/dL Globulin (1.3-4.6) g/dL Lipase (13-60) U/L Urine Color (Yellow) Urine Appearance (CLEAR) Urine pH (5-7) Ur Specific Gravit y (1.005-1.030) Urine Protein (Negative) Urine Glucose (UA) (Normal) Urine Ketones (Negative) Urine Blood (Negative) Urine Nitrate (Negative) Urine Bilirubin (NEGATIVE) Urine Urobilinogen (Negative) mg/dL Ur Leukocyte Sivan ase (Negative) Influenza Type A A g Negative (Negative) POC Influenza B Ag Negative (Negative) Imaging Data^: CXR: Radiologist's impression: [address] [address] XRay Report Signed Patient: Meera Begum Unit #: [id number] : 1945 Age/Sex: 74 / F ADM Date: 11/29/19 Loc: ER Room/Bed: Attending Dr: Ordering Provider/Ordering MD: Rose Marlow Date of Service: 11/29/19 Procedure(s): XR chest 1V portable [id number] Accession Number(s): [id number] Report Number: [id number] WS: [id number] Portable AP upright chest, 11/29/2019 Clinical Data: cough/congestion Comparison: None. Findings: No nodules, masses or effusions are seen. The heart is normal. The pulmonary vascularity is not increased. No pneumonia or pneumothorax is seen. The aortic arch and descending aorta are tortuous. There is a right infusion catheter which ends in the superior vena cava. There are clips in the right upper quadrant from a cholecystectomy. XR/XR chest 1V portable [id number] Impression: Atherosclerosis. Dictated By: Becky Murguia MD Signed By: Becky Murguia MD Signed Date/Time: 11/29/19 1006 DD/ 1005 CT Abd/Pel: Radiologist's impression: [place] [address] CT Scan Report Signed Patient: Meera Begum Unit #: [id number] : 1945 Age/Sex: 74 / F ADM Date: 11/29/19 Loc: ER Room/Bed: Attending Dr: Ordering Provider/Ordering MD: Rose Marlow Date of Service: 11/29/19 Procedure(s): CT abdomen pelvis w con* [id number] Accession Number(s): [id number] Report Number: [id number] WS: [id number] CT scan of the abdomen and pelvis with IV contrast. Additional two-dimensional coronal and sagittal reconstruction was performed. 11/29/2019 Clinical Data: diarrhea; reported fevers Comparison: None. DLP: 487.[address] scans at [facility] use at least one of these dose optimization techniques: automated exposure control; mA and/or kV adjustment per patient size (includes targeted exams where dose is matched to clinical indication); or iterative reconstruction. Findings: The lower lungs show no nodules, masses or effusions. The liver, spleen, adrenal glands and pancreas are normal. There are clips in the gallbladder fossa from cholecystectomy. The kidneys show equal bilateral contrast excretion with a 2.72 cortical right renal cyst. No hydronephrosis, renal calculi or renal masses are seen.. The abdominal aorta is normal in size with minimal calcification in the wall.. No appendicitis or diverticulitis is seen. The stomach, small bowel and remainder of the colon show that there are air-fluid levels in the small bowel and colon. This pattern can be seen with gastroenteritis. No abscess, adenopathy, ascites, mass, obstruction or free air is seen. The bladder is unremarkable. No inguinal hernia is seen. The bones of the lower thorax, lumbar spine, pelvis, and hips no degenerative change at L5-S1.. CT/CT abdomen pelvis w con* [id number] Impression: 1. Air-fluid levels in the small bowel and colon without bowel dilatation consistent with gastroenteritis. 2. Right hemicolectomy and cholecystectomy. Dictated By: Becky Murguia MD Signed By: Becky Murguia MD Signed Date/Time: 11/29/19 1210 DD/ 1203 Discharge Plan Discharge Patient Disposition: Home, Self-Care Clinical Impression: Gastroenteritis Condition: Stable Prescriptions: New Cipro 500 mg tablet 500 mg PO Q12H Qty: 14 RF: 0 No Action Xeloda 500 mg tablet 1,000 mg PO BID RF: 0 capecitabine 150 mg tablet 300 mg PO BID RF: 0 lorazepam 1 mg tablet 1 mg PO TID PRN (Reason: Nausea) RF: 0 Discharge Orders: Discharge Order (Routine); Ordered 11/29/19 Ordered By: Rose Marlow Referrals: Alejandro Gabriel [Primary Care Provider] - Discharge Diet: Regular Discharge Activity: Increase activity as tolerated Patient Instructions: Gastroenteritis (ED) Activity Restrictions/Additional Instructions: Please follow-up with primary care in 2 to 3 days for reevaluation. Return to the emergency department for worsening abdominal pain, worsening diarrhea, fevers greater than 100.4, or any other concerns you may have. Coding Level of Care Code ED Welfare Administrator for Jackie Fwsurinder Exam Comprehensive
--- NOTE | 2019-11-29 09:51 | XR_ITS ---
WS: [id number] Portable AP upright chest, 11/29/2019 Clinical Data: cough/congestion Comparison: None. Findings: No nodules, masses or effusions are seen. The heart is normal. The pulmonary vascularity is not increased. No pneumonia or pneumothorax is seen. The aortic arch and descending aorta are tortuo us. There is a right infusion catheter which ends in the superior vena cava. There are clips in the r ight upper quadrant from a cholecystectomy. XR/XR chest 1V portable [id number] Impression: Atherosclerosis.
[2019-11-29 10:07] LABS: Basophils % 0.5 %; Eosinophils % 0.7 %; Hemoglobin 12.3 g/dL (11.5-15.3); Lymphocytes # 1.1 10^3/uL (0.8-4.8); Lymphocytes % 25.3 %; Mean Corpuscular HGB Conc 34.2 g/dL (30.0-36.0); Mean Corpuscular Hemoglobin 33.2 pg (28.0-34.0); Mean Corpuscular Volume 97.3 fL (81-99); Monocytes % 22.6 %; Neutrophils # 2.2 10^3/uL (1.8-7.7); Neutrophils % 50.7 %; Nucleated Red Blood Cells % 0 %; Platelet Count 104 10^3/cmm (130-400); Red Cell Distribution Width 13.9 % (12.1-15.1); White Blood Count 4.3 10^3/uL (4.0-10.0)
[2019-11-29] MEDS: sodium chloride 0.9% 1,000 ML 999 ML IV (10:07)
[2019-11-29 10:10] LABS: Add Urine Microscopic? NO
[2019-11-29 10:15] LABS: Bilirubin Urine Neg (NEGATIVE); Blood Urine Neg (Negative); Glucose Urine UA Norm (Normal); Ketones Urine 1+ (Negative); Leukocyte Esterase Urine Negative (Negative); Nitrate Urine Negative (Negative); Protein Urine Neg (Negative); Urine Appearance Clear (CLEAR); Urine Color Yellow (Yellow); Urobilinogen Urine Norm (Negative); pH Urine 6.5 (5-7)
[2019-11-29 10:24] LABS: Alanine Aminotransferase 19 U/L (0-33); Albumin Level 3.9 g/dL (3.5-5.2); Alkaline Phosphatase 54 IU/L (35-105); Anion Gap 16.5 (5-19); Aspartate Amino Transferase 26 U/L (0-32); Blood Urea Nitrogen 6 mg/dL (8-23); Calcium 9.4 mg/dL (8.5-10.5); Carbon Dioxide 22 mmol/L (22-29); Chloride 107 mmol/L (98-107); Globulin 2.5 g/dL (1.3-4.6); Glucose 111 mg/dL (65-115); Lipase 23 U/L (13-60); Osmolality Calculated 290 mOsm/kg (285-295); Potassium 3.5 mmol/L (3.5-5.1); Sodium 142 mmol/L (136-145); Total Bilirubin 0.6 mg/dL (0.15-1.2); Total Protein 6.4 g/dL (6.6-8.7)
[2019-11-29 10:36] LABS: Influenza A by IFA Negative (Negative); Influenza B by IFA Negative (Negative)
--- NOTE | 2019-11-29 11:06 | CT_ITS ---
WS: [id number] CT scan of the abdomen and pelvis with IV contrast. Additional two-dimensional coronal and sagittal reconstruction was performed. 11/29/2019 Clinical Data: diarrhea; reported fevers Comparison: None. DLP: 487.[address] scans at [facility] use at least one of these dose optimization techniques: automat ed exposure control; mA and/or kV adjustment per patient size (includes targeted exams where dose is matched to clinical indication); or iterative reconstruction. Findings: The lower lungs show no nodules, masses or effusions. The liver, spleen, adrenal glands and pancreas are normal. There are clips in the gallbladder fossa f rom cholecystectomy. The kidneys show equal bilateral contrast excretion with a 2.72 cortical right renal cyst. No hydrone phrosis, renal calculi or renal masses are seen.. The abdominal aorta is normal in size with minimal calcification in the wall.. No appendicitis or diverticulitis is seen. The stomach, small bowel and remainder of the colon show t hat there are air-fluid levels in the small bowel and colon. This pattern can be seen with gastroent eritis. No abscess, adenopathy, ascites, mass, obstruction or free air is seen. The bladder is unremarkable. No inguinal hernia is seen. The bones of the lower thorax, lumbar spine, pelvis, and hips no degenerative change at L5-S1.. CT/CT abdomen pelvis w con* [id number] Impression: 1. Air-fluid levels in the small bowel and colon without bowel dilatation consi stent with gastroenteritis. 2. Right hemicolectomy and cholecystectomy.
[2019-11-29 11:10] LABS: Magnesium 2.1 mg/dL (1.7-2.3)
--- NOTE | 2019-11-29 11:22 | PC.NURSE ---
Pt ambulated to BR with no assistance.
--- NOTE | 2019-11-29 11:27 | PC.NURSE ---
Pt to CT
--- NOTE | 2019-11-29 11:39 | PC.NURSE ---
Pt returned from CT
[2019-11-29] MEDS: iohexol 300 mg/mL 100 mL Btl IV (12:02)
[2019-11-29] MEDS: ciprofloxacin 400 MG/200 ML PREMIX 200 MG IV (13:13)
--- NOTE | 2019-11-29 13:20 | PC.NURSE ---
Blood culture obtained from PAC prior to start of antibiotics
== END 2019-11-29 14:31 | disposition home or self-care (01) ==
PROVIDERS: Emergency Provider Physician Assistant; PCP Family Medicine
DX: K52.9 Noninfective gastroenteritis and colitis, unspecified (principal)
CPT/HCPCS: 12345; 36415; 36591; 51701; 71045; 74177; 80053; 81003; 83690; 83735; 85025; 87040; 87804; 96360; 96365; 96374; 99284; J0744; J1642; J7030; Q9967

== ENCOUNTER 2020-01-03 10:40 | Outpatient (RCR) | payer MEDICARE, SELFPAY ==
--- NOTE | 2019-12-07 15:34 | ONC FU_ITS ---
Dr. Mckinney follow up note Patient: Meera Begum Unit #: [id number]: 1945 Dicatated By: Erick Mckinney M.D.Date of Visit:Dec 07, 2019 Onc Med Follow-up/Prog Note History of Present Illness: Mrs. Begum is a 73-year-old female who in August 2019, was admitted to [facility] in [facility] with abdominal pain and nausea. She had had a two history of dyspeptic symptoms as well as a gurgling sensation in the upper abdomen. She had some pain in the right upper quadrant as well. She presented with nausea but no vomiting or diarrhea. She states she had not had constipation prior to that admission and denied any dark tarry stools. She underwent evaluation in the emergency room, was found to have cholelithiasis however her CT of the abdomen pelvis showed masslike thickening at the ilio cecal valve. This was causing a proximal partial small bowel obstruction. surgery was consulted patient underwent colonoscopy on 09/04/2019, and she was found to have cecal mass and remaining exam was unremarkable. She did have a small bowel series on 09/02/2019. There was no evidence of significant small bowel obstruction as contrast passed from the stomach and small bowel into the colon within 1 hour (normal transit time is within 3 hours). The patient's known iliac mass was not well demonstrated on that study. A colonoscopy was recommended and performed to the cecum on 09/04/[address] Fernandez. Postop diagnosis was cecal mass. Dr. Fernandez recommended right hemicolectomy and an open cholecystectomy at the same time. Mrs. Begum underwent right hemicolectomy and ileocolonic anastomosis, cholecystectomy for cecal mass and cholelithiasis on 09/05/2019. On postop day 4 she still had no bowel sounds and was having some pain at the superior portion of her incision. She was diagnosed with postop ileus and TPN was started. Mrs. Begum was discharged from [facility] on September 15, 2019 with a discharge diagnosis of acute cholelithiasis, partial bowel obstruction secondary to cecal mass and transmural adenocarcinoma of the colon with 2+ lymph nodes. The pathology report from 09/05/2019 reports: cecum: Ascending colon and attached terminal ileum (Joaquin ileocolectomy) 1. Invasive moderately differentiated colonic adenocarcinoma involving the cecum, ileocecal valve and appendiceal lumen. 2 neoplasm invades to the entire bowel wall into the pericolonic adipose tissue, focally involving linked serosal margins. 3 proximal and distal margins of the resection are free of neoplasm. 4 large tubulovillous villous adenoma precursor lesion identified within the invasive tumor. 5. Lymph nodes pericolonic total of 24 were removed and 2 revealed metastatic adenocarcinoma. The gallbladder just showed chronic cholecystitis no evidence of malignancy. Colonic mucosa tissue and anastomosis 1. Benign segment of large bowel, clinically anastomotic tissue with no tumor seen. 2/24 lymph nodes were removed, showed metastatic disease. Tumor site was felt to be cecum/ileocecal valve. Specimen integrity was intact. Histological type was adenocarcinoma histological grade G2, moderately differentiated. Tumor extension tumor invades through the muscularis precordia. Margins invasive carcinoma involves the inked serosal surface of the cecal focally. Mucosal margins uninvolved by invasive adenocarcinoma 13 cm proximal and 20 cm to distal. Pathologic stage classification per the [facility] report on 09/05/2019 was pT4a, pN1, pMX. Her lab workup done on 09/13/2019 shows white blood count 8.4 hemoglobin 12.6 crit 38.9 platelets 193,000, CMP within normal limit except glucose 154. Because of posterior surgical margin, Mrs Begum was referred to radiation oncology and Dr. Ricks recommended radiation therapy after she completed her adjuvant chemotherapy. She was then referred to Dr Mckinney. did discuss this case with pathologist regarding positive serosal margin and and as per pathology, margins were clear.. He also requested Mismatch repair proteins on 10/10/2019.: MLH1 intact, MSH2 intact, MSH6 intact, PMS2 intact. Mrs Carbajal was offered treatment with oxliplatin and Xeloda. She had port placement on October 30, [address] Fernandez at [facility] She stated her first cycle on 11/07/2019. Came for follow-up, denies any specific complaints, no fever no chills, no nausea or vomiting, no diarrhea constipation, no mouth sores, no peripheral numbness. But with first dose of oxaliplatin, patient said she felt better for 2- 3 days and then developed abdomen pain and severe diarrhea and went to [facility] in [place], [place] she was diagnosed with urine tract infection, antibody was prescribed , as per patient she did not take antibiotic as she was feeling weak and tired having weakness in lower extremity along with palpitation. Then she went to [facility], but she was told she don't have urine tract infection, she may have stomach 'bug'. Subsequently she went to see her PMD, his impression was neither UTI or stomach bug. With a concern regarding chemotherapy toxicity. Now all the symptoms have resolved . Medications: There is no information available for Current Medications - Patient. Allergies: Sulfa Antibiotics Review of Systems: Constitutional - Appetite is good and weight is stable. No fever, chills, hot flashes, or night sweats. Energy level is good today, Pt is recovering from the flu, ENMT - No sinus congestion/drainage. No mouth sores. No sore throat or difficulty swallowing, Hematologic/Lymphatic - No abnormal bruising or bleeding, Respiratory - No shortness of breath. No cough. No pleuritic pain or hemoptysis, Cardiovascular - No angina pain. No palpitations, Gastrointestinal - No nausea or vomiting. No heartburn or acid reflux. No diarrhea or constipation. No blood in the stool or black stools, Genitourinary (F) - No dysuria or hematuria. No urinary frequency. No urgency or incontinence, Musculoskeletal - Occasional pain in right hip, Neurologic - No headache or dizziness. No numbness/paresthesias or other focal neurologic symptoms, Psychiatric - No anxiety or depression. No insomnia. Vital Signs: Performed on Dec 07, 2019 08:35 Height - 65.00 in Weight - 123.0 lbs (LOW) BSA - 1.61 sq.m BMI - 20.47 Temperature - 98.6 F Pulse - 99 /min Respiration - 18 /min BP - 136/84 mm(hg) O2 Sat - 99 % Pain - 0 Performance Status: 0 - Fully active, able to carry on all predisease activities without restrictions. (ECOG) Physical Examination: ENMT - No oral exudates, ulcers, masses, thrush or mucositis. Oropharynx clear. Tongue normal, Respiratory - Lungs are clear to auscultation, Cardiovascular - Regular rate and rhythm of heart, Abdomen - Non-tender, non-distended, Good bowel sounds. No guarding or rebound tenderness. No pulsatile masses, Extremities - no edema. Lab/Imaging: Test performed on Dec 06, 2019 09:18 Glucose 137 mg/dL BUN 7 mg/dL Creatinine 0.5 mg/dL Cr Clearance (Est) 92.60 mL/min Sodium 138 mmol/L Potassium 3.3 mmol/L Chloride 106 mmol/L CO2 24 mmol/L Protein, Total 6.7 g/dL Albumin 3.9 g/dL Bilirubin, Total 0.7 mg/dL Alkaline Phosphatase 62 IU/L AST (SGOT) 34 IU/L ALT (SGPT) 24 IU/L WBC 4.2 10^9/L RBC 3.94 10^12/L HGB 12.8 g/dL HCT 39.1 % MCV 99.2 fl MCH 32.5 pg MCHC 33 g/dL RDW 12.9 % Platelet Count 111 10^9/L MPV 8.5 fL Neutrophils (Gran) 63 10^9/L Lymphocytes 32 10^9/L Monocytes 5 10^9/L Manual Lymphocytes 34.7 % Manual Monocytes 6.1 % Manual Eosinophils 1.0 % Manual Basophils 0.5 % Test performed on Nov 20, 2019 12:52 Anion Gap 13.4 Calcium 9.7 mg/dL Globulin 2.9 g/dL Eosinophils 0.0 10 3/uL Basophils 0.0 10 3/uL Neutrophil % 73.7 % Lymphocyte % 17.7 % Monocyte % 8.3 % Eosinophil % 0.1 % Basophils % 0.1 % Test performed on Nov 07, 2019 09:20 CEA 1.6 ng/mL Impression: Invasive moderately differentiated adenocarcinoma involving cecum per right hemicolectomy done on 09/05/2019 Final pathology report showed invasive moderately differentiated colonic adenocarcinoma involving cecum, ileocecal valve, appendiceal lumen. Neoplasm invades through the entire bowel wall into the pericolonic adipose tissue, focally involving inked serosal margins T4a 2 out of 24 lymph nodes positive for metastatic disease pN1 next Stage IIIB MSI/MMR status intact discussed with patient her disease status and treatment options. The case was also discussed with the pathologist regarding positive serosal margin mentioned in final pathology report. And he will review it again and get back to us in the meantime we elected to proceed with adjuvant chemotherapy, patient was concerned about copayments and based on cost and efficacy, oxaliplatin/capecitabine would be an appropriate choice. We'll consider oxaliplatin 130 mg/m??? every 3 weeks and Xeloda 850 mg/m??? twice a day day 1 through 14 and repeat every 21 days. We will consider minimum 4 cycles at least and if tolerated, will complete the recommended 8 cycles. She began her first cycle CapeOx on 11/07/2019. developed severe toxicity to oxaliplatine.g. diarrhea abdominal pain, generalized weakness and fatigue, palpitation, lower extremity edema so oxaliplatin was discontinued after 1 dose and she was switched to Xeloda alone, 14 days on and then repeat every 21 days for 6 months on 11/29/2019 Plan: Discussed with patient regarding her labs, shows white blood count 4.2 hemoglobin 12.8 hematocrit 39.1 platelets 111,000 CMP within normal limits except potassium 3.3 and glucose 137 Clinically, patient is doing reasonably well, but had a rough time after first cycle of chemotherapy with oxaliplatin, as per patient she tolerated Xeloda pills well. Considering her age and performance status and her social status, and toxicity related to oxaliplatin, it was decided to discontinue oxaliplatin and switch to Xeloda alone. We'll consider Xeloda day 1 through 14 and repeat every 21 days for 6 months. As patient is tolerating Xeloda well so far. Patient has started her second cycle of 14 days Xeloda on 11/29/2019 and tolerating well we'll continue and she will complete her 14 days cycle on 12/13/2019 we'll see her back in 2 weeks with CBC CMP. As far as mild hypokalemia is concern patient was advised to take potassium supplement for 3 days and then we'll repeat her BMP on Wednesday and then advise. Signed By: Erick Mckinney M.D. <<Signature on File>>
[2019-12-11 19:37] LABS: Basophils % 0.4 %; Eosinophils % 0.7 %; Hematocrit 39.4 % (37.0-47.0); Hemoglobin 12.8 g/dL (11.5-15.3); Lymphocytes # 1.6 10^3/uL (0.8-4.8); Lymphocytes % 28.9 %; Mean Corpuscular HGB Conc 32.5 g/dL (30.0-36.0); Mean Corpuscular Hemoglobin 33.4 pg (28.0-34.0); Mean Corpuscular Volume 102.9 fL (81-99); Mean Platelet Volume 11.3 fL (7.4-10.4); Monocytes # 0.3 10^3/uL (0.2-0.9); Monocytes % 4.5 %; Neutrophils # 3.6 10^3/uL (1.8-7.7); Neutrophils % 65.3 %; Nucleated Red Blood Cells % 0 %; Platelet Count 133 10^3/cmm (130-400); Red Blood Count 3.83 10^6/uL (4.1-5.3); Red Cell Distribution Width 14.6 % (12.1-15.1); White Blood Count 5.5 10^3/uL (4.0-10.0)
[2019-12-11 19:55] LABS: Alanine Aminotransferase 20 U/L (0-33); Albumin Level 4.1 g/dL (3.5-5.2); Alkaline Phosphatase 57 IU/L (35-105); Aspartate Amino Transferase 30 U/L (0-32); Blood Urea Nitrogen 9 mg/dL (8-23); Calcium 9.7 mg/dL (8.5-10.5); Carbon Dioxide 25 mmol/L (22-29); Chloride 105 mmol/L (98-107); Globulin 2.7 g/dL (1.3-4.6); Glucose 77 mg/dL (65-115); Potassium 3.6 mmol/L (3.5-5.1); Total Bilirubin 0.6 mg/dL (0.15-1.2); Total Protein 6.8 g/dL (6.6-8.7)
[2019-12-11 20:42] LABS: Anion Gap 16.6 (5-19); Osmolality Calculated 291 mOsm/kg (285-295); Sodium 143 mmol/L (136-145)
[2019-12-18 17:06] LABS: Basophils % 0.4 %; Eosinophils % 0.7 %; Hematocrit 40.4 % (37.0-47.0); Hemoglobin 13.3 g/dL (11.5-15.3); Lymphocytes # 1.9 10^3/uL (0.8-4.8); Lymphocytes % 35.9 %; Mean Corpuscular HGB Conc 32.9 g/dL (30.0-36.0); Mean Corpuscular Hemoglobin 34.3 pg (28.0-34.0); Mean Corpuscular Volume 104.1 fL (81-99); Mean Platelet Volume 11.6 fL (7.4-10.4); Monocytes # 0.6 10^3/uL (0.2-0.9); Monocytes % 10.6 %; Neutrophils # 2.8 10^3/uL (1.8-7.7); Nucleated Red Blood Cells % 0 %; Platelet Count 196 10^3/cmm (130-400); Red Blood Count 3.88 10^6/uL (4.1-5.3); Red Cell Distribution Width 16.7 % (12.1-15.1); White Blood Count 5.4 10^3/uL (4.0-10.0)
[2019-12-18 17:33] LABS: Alanine Aminotransferase 20 U/L (0-33); Albumin Level 4.5 g/dL (3.5-5.2); Alkaline Phosphatase 62 IU/L (35-105); Anion Gap 17.5 (5-19); Aspartate Amino Transferase 28 U/L (0-32); Blood Urea Nitrogen 10 mg/dL (8-23); Calcium 10.2 mg/dL (8.5-10.5); Carbon Dioxide 24 mmol/L (22-29); Chloride 106 mmol/L (98-107); Globulin 2.6 g/dL (1.3-4.6); Glucose 87 mg/dL (65-115); Osmolality Calculated 291 mOsm/kg (285-295); Potassium 4.5 mmol/L (3.5-5.1); Sodium 143 mmol/L (136-145); Total Bilirubin 0.6 mg/dL (0.15-1.2); Total Protein 7.1 g/dL (6.6-8.7)
--- NOTE | 2019-12-20 12:27 | ONC FU_ITS ---
Dr. Mckinney follow up note Patient: Meera Begum Unit #: [id number]: 1945 Dicatated By: Erick Mckinney M.D.Date of Visit:Dec 20, 2019 Onc Med Follow-up/Prog Note History of Present Illness: Mrs. Begum is a 73-year-old female who in August 2019, was admitted to [facility] in [facility] with abdominal pain and nausea. She had had a two history of dyspeptic symptoms as well as a gurgling sensation in the upper abdomen. She had some pain in the right upper quadrant as well. She presented with nausea but no vomiting or diarrhea. She states she had not had constipation prior to that admission and denied any dark tarry stools. She underwent evaluation in the emergency room, was found to have cholelithiasis however her CT of the abdomen pelvis showed masslike thickening at the ilio cecal valve. This was causing a proximal partial small bowel obstruction. surgery was consulted patient underwent colonoscopy on 09/04/2019, and she was found to have cecal mass and remaining exam was unremarkable. She did have a small bowel series on 09/02/2019. There was no evidence of significant small bowel obstruction as contrast passed from the stomach and small bowel into the colon within 1 hour (normal transit time is within 3 hours). The patient's known iliac mass was not well demonstrated on that study. A colonoscopy was recommended and performed to the cecum on 09/04/[address] Fernandez. Postop diagnosis was cecal mass. Dr. Fernandez recommended right hemicolectomy and an open cholecystectomy at the same time. Mrs. Begum underwent right hemicolectomy and ileocolonic anastomosis, cholecystectomy for cecal mass and cholelithiasis on 09/05/2019. On postop day 4 she still had no bowel sounds and was having some pain at the superior portion of her incision. She was diagnosed with postop ileus and TPN was started. Mrs. Begum was discharged from [facility] on September 15, 2019 with a discharge diagnosis of acute cholelithiasis, partial bowel obstruction secondary to cecal mass and transmural adenocarcinoma of the colon with 2+ lymph nodes. The pathology report from 09/05/2019 reports: cecum: Ascending colon and attached terminal ileum (Joaquin ileocolectomy) 1. Invasive moderately differentiated colonic adenocarcinoma involving the cecum, ileocecal valve and appendiceal lumen. 2 neoplasm invades to the entire bowel wall into the pericolonic adipose tissue, focally involving linked serosal margins. 3 proximal and distal margins of the resection are free of neoplasm. 4 large tubulovillous villous adenoma precursor lesion identified within the invasive tumor. 5. Lymph nodes pericolonic total of 24 were removed and 2 revealed metastatic adenocarcinoma. The gallbladder just showed chronic cholecystitis no evidence of malignancy. Colonic mucosa tissue and anastomosis 1. Benign segment of large bowel, clinically anastomotic tissue with no tumor seen. 2/24 lymph nodes were removed, showed metastatic disease. Tumor site was felt to be cecum/ileocecal valve. Specimen integrity was intact. Histological type was adenocarcinoma histological grade G2, moderately differentiated. Tumor extension tumor invades through the muscularis precordia. Margins invasive carcinoma involves the inked serosal surface of the cecal focally. Mucosal margins uninvolved by invasive adenocarcinoma 13 cm proximal and 20 cm to distal. Pathologic stage classification per the [facility] report on 09/05/2019 was pT4a, pN1, pMX. Her lab workup done on 09/13/2019 shows white blood count 8.4 hemoglobin 12.6 crit 38.9 platelets 193,000, CMP within normal limit except glucose 154. Because of posterior surgical margin, Mrs Begum was referred to radiation oncology and Dr. Ricks recommended radiation therapy after she completed her adjuvant chemotherapy. She was then referred to Dr Mckinney. did discuss this case with pathologist regarding positive serosal margin and and as per pathology, margins were clear.. He also requested Mismatch repair proteins on 10/10/2019.: MLH1 intact, MSH2 intact, MSH6 intact, PMS2 intact. Mrs Carbajal was offered treatment with oxliplatin and Xeloda. She had port placement on October 30, [address] eFrnandez at [facility] She stated her first cycle on 11/07/2019. But with first dose of oxaliplatin, patient said she felt better for 2- 3 days and then developed abdomen pain and severe diarrhea and went to [facility] in [place], [place] she was diagnosed with urine tract infection, antibody was prescribed , as per patient she did not take antibiotic as she was feeling weak and tired having weakness in lower extremity along with palpitation. Then she went to [facility], but she was told she don't have urine tract infection, she may have stomach 'bug'. Subsequently she went to see her PMD, his impression was neither UTI or stomach bug. but With a concern regarding chemotherapy toxicity. oxaliplatin was discontinued after 1st cycle of chemotherapy and she was switched to Xeloda alone on 12/20/2019 e.g. 2 weeks on 1 week off, for 6-8 cycles. Came for follow-up, denies any specific complaints, no fever no chills no nausea or vomiting no diarrhea constipation no mouth sores, appetite is good, feeling better since she is off chemotherapy. Now starting her Xeloda alone regimen today, she will take Xeloda daily for 2 weeks on 1 week off as planned. . Medications: There is no information available for Current Medications - Patient. Allergies: Sulfa Antibiotics Review of Systems: Constitutional - Appetite is good and weight is stable. No fever, chills, hot flashes, or night sweats. Energy level is fair, Pt states that she is tired, ENMT - No sinus congestion/drainage. No mouth sores. No sore throat or difficulty swallowing, Hematologic/Lymphatic - No abnormal bruising or bleeding, Respiratory - No shortness of breath. No cough. No pleuritic pain or hemoptysis, Cardiovascular - No angina pain. No palpitations, Gastrointestinal - No nausea or vomiting. No heartburn or acid reflux. No diarrhea or constipation. No blood in the stool or black stools, Genitourinary (F) - No dysuria or hematuria. No urinary frequency. No urgency or incontinence, Musculoskeletal - Occasional pain in right hip continues, Neurologic - No headache or dizziness. No numbness/paresthesias or other focal neurologic symptoms, Psychiatric - No anxiety or depression. No insomnia. Vital Signs: Performed on Dec 20, 2019 11:07 Height - 65.00 in Weight - 124.0 lbs (HIGH) BSA - 1.61 sq.m BMI - 20.63 Temperature - 97.9 F (LOW) Pulse - 73 /min Respiration - 16 /min BP - 155/95 mm(hg) (HIGH) O2 Sat - 98 % Performance Status: 0 - Fully active, able to carry on all predisease activities without restrictions. (ECOG) Physical Examination: ENMT - denies mouth sores or thrush, Respiratory - Lungs are clear , Cardiovascular - Regular rate and rhythm, Abdomen - no abdominal pain or distention, Extremities - denies edema or rash. Lab/Imaging: Test performed on Dec 11, 2019 11:35 Sodium 143 mmol/L Potassium 3.6 mmol/L Chloride 105 mmol/L CO2 25 mmol/L Anion Gap 16.6 BUN 9 mg/dL Creatinine 0.5 mg/dL Cr Clearance (Est) 92.6000 mL/min Glucose 77 mg/dL Calcium 9.7 mg/dL Protein, Total 6.8 g/dL Albumin 4.1 g/dL Globulin 2.7 g/dL Bilirubin, Total 0.6 mg/dL ALT (SGPT) 20 U/L AST (SGOT) 30 U/L Alkaline Phosphatase 57 IU/L WBC 5.5 10 3/uL RBC 3.83 10 6/uL HGB 12.8 g/dL HCT 39.4 % MCV 102.9 fL MCH 33.4 pg MCHC 32.5 g/dL RDW 14.6 % Platelet Count 133 10 3/cmm MPV 11.3 fL Neutrophils 3.6 10 3/uL Lymphocytes 1.6 10 3/uL Monocytes 0.3 10 3/uL Eosinophils 0.0 10 3/uL Basophils 0.0 10 3/uL Neutrophil % 65.3 % Lymphocyte % 28.9 % Monocyte % 4.5 % Eosinophil % 0.7 % Basophils % 0.4 % Test performed on Dec 06, 2019 09:18 Manual Lymphocytes 34.7 % Manual Monocytes 6.1 % Manual Eosinophils 1.0 % Manual Basophils 0.5 % Test performed on Nov 07, 2019 09:20 CEA 1.6 ng/mL Impression: Invasive moderately differentiated adenocarcinoma involving cecum per right hemicolectomy done on 09/05/2019 Final pathology report showed invasive moderately differentiated colonic adenocarcinoma involving cecum, ileocecal valve, appendiceal lumen. Neoplasm invades through the entire bowel wall into the pericolonic adipose tissue, focally involving inked serosal margins T4a 2 out of 24 lymph nodes positive for metastatic disease pN1 next Stage IIIB MSI/MMR status intact discussed with patient her disease status and treatment options. The case was also discussed with the pathologist regarding positive serosal margin mentioned in final pathology report. And he will review it again and get back to us in the meantime we elected to proceed with adjuvant chemotherapy, patient was concerned about copayments and based on cost and efficacy, oxaliplatin/capecitabine would be an appropriate choice. We'll consider oxaliplatin 130 mg/m??? every 3 weeks and Xeloda 850 mg/m??? twice a day day 1 through 14 and repeat every 21 days. We will consider minimum 4 cycles at least and if tolerated, will complete the recommended 8 cycles. She began her first cycle CapeOx on 11/07/2019. developed severe toxicity to oxaliplatine.g. diarrhea abdominal pain, generalized weakness and fatigue, palpitation, lower extremity edema so oxaliplatin was discontinued after 1 dose and she was switched to Xeloda alone, 14 days on and then repeat every 21 days for 6 months on 11/29/2019 Plan: Discussed with patient regarding her labs white blood count 5.4 hemoglobin 13.3 crit 40.4 platelets 196,000 CMP within normal limits Clinically, patient is doing well, now being started on adjuvant therapy with Xeloda alone, 2 weeks on 1 week off, patient did develop severe GI symptoms and overall generalized weakness and fatigue and peripheral numbness, which was thought to be due to systemic chemotherapy especially oxaliplatin. Oxaliplatin was discontinued after 1st cycle and now, today, starting her adjuvant chemotherapy with Xeloda alone. Patient will take oral Xeloda for 2 weeks on 1 week off, for 6-8 cycles. We will repeat her CBC CMP in 2 weeks and patient is concerned about coming to clinic especially during michelle pandemic, so we'll consider telemedicine evaluation. Signed By: Erick Mckinney M.D. <<Signature on File>>
[2020-01-03 20:06] LABS: Basophils % 0.3 %; Eosinophils % 0.7 %; Hematocrit 37.6 % (37.0-47.0); Hemoglobin 12.4 g/dL (11.5-15.3); Lymphocytes % 33.1 %; Mean Corpuscular Hemoglobin 35.5 pg (28.0-34.0); Mean Corpuscular Volume 107.7 fL (81-99); Mean Platelet Volume 12.3 fL (7.4-10.4); Monocytes # 0.5 10^3/uL (0.2-0.9); Monocytes % 8.6 %; Neutrophils # 3.5 10^3/uL (1.8-7.7); Neutrophils % 57.1 %; Nucleated Red Blood Cells % 0 %; Platelet Count 153 10^3/cmm (130-400); Red Blood Count 3.49 10^6/uL (4.1-5.3); Red Cell Distribution Width 18.8 % (12.1-15.1); White Blood Count 6.1 10^3/uL (4.0-10.0)
[2020-01-03 21:10] LABS: Alanine Aminotransferase 19 U/L (0-33); Albumin Level 4.4 g/dL (3.5-5.2); Alkaline Phosphatase 64 IU/L (35-105); Anion Gap 16.9 (5-19); Aspartate Amino Transferase 30 U/L (0-32); Blood Urea Nitrogen 8 mg/dL (8-23); Calcium 9.8 mg/dL (8.5-10.5); Carbon Dioxide 24 mmol/L (22-29); Chloride 103 mmol/L (98-107); Globulin 2.9 g/dL (1.3-4.6); Glucose 78 mg/dL (65-115); Osmolality Calculated 285 mOsm/kg (285-295); Potassium 3.9 mmol/L (3.5-5.1); Sodium 140 mmol/L (136-145); Total Bilirubin 0.7 mg/dL (0.15-1.2); Total Protein 7.3 g/dL (6.6-8.7)
== END 2020-01-04 23:59 | disposition home or self-care (01) ==
LOC: ONCMED 10:40
PROVIDERS: PCP Family Medicine; Visit Provider Internal Medicine Hematology & Oncology
DX: C18.8 Malignant neoplasm of overlapping sites of colon (principal); C77.2 Secondary and unspecified malignant neoplasm of intra-abdominal lymph nodes; Z45.2 Encounter for adjustment and management of vascular access device; E87.6 Hypokalemia; T45.1X5D Adverse effect of antineoplastic and immunosuppressive drugs, subsequent encounter; Z90.49 Acquired absence of other specified parts of digestive tract; Z79.899 Other long term (current) drug therapy; Z95.828 Presence of other vascular implants and grafts
CPT/HCPCS: 36415; 80053; 85025; 96523; 99214

== ENCOUNTER 2020-01-23 06:42 | Outpatient (RCR) | payer MEDICARE, SELFPAY ==
--- NOTE | 2020-01-05 14:35 | ONC FU_ITS ---
Dr. Mckinney follow up note Patient: Meera Begum Unit #: [id number]: 1945 Dicatated By: Erick Mckinney M.D.Date of Visit:January 05, 2020 Telehealth Progress Note The patient has been informed that the visit may not be secure and acknowledged the information. I have explained the option of participating in a telephone or video visit during the [facility] [place] [address] emergency to the patient. After being given an opportunity to ask questions about and discuss this type of visit, the patient verbally consented to proceeding with the telephone/video visit. the patient understands that this service replaces an office visit and they may be billed and /or responsible for any applicable copayments History of Present Illness: Mrs. Begum is a 74-year-old female who in August 2019, was admitted to [facility] in [facility] with abdominal pain and nausea. She had had a two history of dyspeptic symptoms as well as a gurgling sensation in the upper abdomen. She had some pain in the right upper quadrant as well. She presented with nausea but no vomiting or diarrhea. She states she had not had constipation prior to that admission and denied any dark tarry stools. She underwent evaluation in the emergency room, was found to have cholelithiasis however her CT of the abdomen pelvis showed masslike thickening at the ilio cecal valve. This was causing a proximal partial small bowel obstruction. surgery was consulted patient underwent colonoscopy on 09/04/2019, and she was found to have cecal mass and remaining exam was unremarkable. She did have a small bowel series on 09/02/2019. There was no evidence of significant small bowel obstruction as contrast passed from the stomach and small bowel into the colon within 1 hour (normal transit time is within 3 hours). The patient's known iliac mass was not well demonstrated on that study. A colonoscopy was recommended and performed to the cecum on 09/04/[address] Fernandez. Postop diagnosis was cecal mass. Dr. Fernandez recommended right hemicolectomy and an open cholecystectomy at the same time. Mrs. Begum underwent right hemicolectomy and ileocolonic anastomosis, cholecystectomy for cecal mass and cholelithiasis on 09/05/2019. On postop day 4 she still had no bowel sounds and was having some pain at the superior portion of her incision. She was diagnosed with postop ileus and TPN was started. Mrs. Begum was discharged from [facility] on September 15, 2019 with a discharge diagnosis of acute cholelithiasis, partial bowel obstruction secondary to cecal mass and transmural adenocarcinoma of the colon with 2+ lymph nodes. The pathology report from 09/05/2019 reports: cecum: Ascending colon and attached terminal ileum (Joaquin ileocolectomy) 1. Invasive moderately differentiated colonic adenocarcinoma involving the cecum, ileocecal valve and appendiceal lumen. 2 neoplasm invades to the entire bowel wall into the pericolonic adipose tissue, focally involving linked serosal margins. 3 proximal and distal margins of the resection are free of neoplasm. 4 large tubulovillous villous adenoma precursor lesion identified within the invasive tumor. 5. Lymph nodes pericolonic total of 24 were removed and 2 revealed metastatic adenocarcinoma. The gallbladder just showed chronic cholecystitis no evidence of malignancy. Colonic mucosa tissue and anastomosis 1. Benign segment of large bowel, clinically anastomotic tissue with no tumor seen. 2/24 lymph nodes were removed, showed metastatic disease. Tumor site was felt to be cecum/ileocecal valve. Specimen integrity was intact. Histological type was adenocarcinoma histological grade G2, moderately differentiated. Tumor extension tumor invades through the muscularis precordia. Margins invasive carcinoma involves the inked serosal surface of the cecal focally. Mucosal margins uninvolved by invasive adenocarcinoma 13 cm proximal and 20 cm to distal. Pathologic stage classification per the [facility] report on 09/05/2019 was pT4a, pN1, pMX. Her lab workup done on 09/13/2019 shows white blood count 8.4 hemoglobin 12.6 crit 38.9 platelets 193,000, CMP within normal limit except glucose 154. Because of posterior surgical margin, Mrs Begum was referred to radiation oncology and Dr. Ricks recommended radiation therapy after she completed her adjuvant chemotherapy. She was then referred to Dr Mckinney. did discuss this case with pathologist regarding positive serosal margin and and as per pathology, margins were clear.. He also requested Mismatch repair proteins on 10/10/2019.: MLH1 intact, MSH2 intact, MSH6 intact, PMS2 intact. Mrs Carbajal was offered treatment with oxliplatin and Xeloda. She had port placement on October 30, [address] Fernandez at [facility] She stated her first cycle on 11/07/2019. But with first dose of oxaliplatin, patient said she felt better for 2- 3 days and then developed abdomen pain and severe diarrhea and went to [facility] in [place], [place] she was diagnosed with urine tract infection, antibody was prescribed , as per patient she did not take antibiotic as she was feeling weak and tired having weakness in lower extremity along with palpitation. Then she went to [facility], but she was told she don't have urine tract infection, she may have stomach 'bug'. Subsequently she went to see her PMD, his impression was neither UTI or stomach bug. but With a concern regarding chemotherapy toxicity. oxaliplatin was discontinued after 1st cycle of chemotherapy and she was switched to Xeloda alone on 12/20/2019 e.g. 2 weeks on 1 week off, for 6-8 cycles. Evaluated via telephone, patient denies any specific complaints except tenderness in the fingertips but no skin changes except off and on mild redness but no skin peeling. No fever or chills, no nausea or vomiting, no diarrhea constipation, no mouth sores, no jaundice. Patient completed her last course of order Xeloda 3 days ago. . Medications: There is no information available for Current Medications - Patient. Allergies: Sulfa Antibiotics Review of Systems: Review of Systems is not available for this patient. Vital Signs: Vitals are not available for this patient. Performance Status: 0 - Fully active, able to carry on all predisease activities without restrictions. (ECOG) Physical Examination: ENMT - no mouth sores, Respiratory - patient denies wheezing or shortness of breath, Cardiovascular - patient denies palpitation or tachycardia, Abdomen - patient denies abdominal pain, Extremities - patient denies any edema or rash except off and on redness and tenderness in bilateral fingertips. Lab/Imaging: Test performed on Dec 18, 2019 12:10 Sodium 143 mmol/L Potassium 4.5 mmol/L Chloride 106 mmol/L CO2 24 mmol/L Anion Gap 17.5 BUN 10 mg/dL Creatinine 0.6 mg/dL Cr Clearance (Est) 77.1700 mL/min Glucose 87 mg/dL Calcium 10.2 mg/dL Protein, Total 7.1 g/dL Albumin 4.5 g/dL Globulin 2.6 g/dL Bilirubin, Total 0.6 mg/dL ALT (SGPT) 20 U/L AST (SGOT) 28 U/L Alkaline Phosphatase 62 IU/L WBC 5.4 10 3/uL RBC 3.88 10 6/uL HGB 13.3 g/dL HCT 40.4 % MCV 104.1 fL MCH 34.3 pg MCHC 32.9 g/dL RDW 16.7 % Platelet Count 196 10 3/cmm MPV 11.6 fL Neutrophils 2.8 10 3/uL Lymphocytes 1.9 10 3/uL Monocytes 0.6 10 3/uL Eosinophils 0.0 10 3/uL Basophils 0.0 10 3/uL Neutrophil % 52.0 % Lymphocyte % 35.9 % Monocyte % 10.6 % Eosinophil % 0.7 % Basophils % 0.4 % Test performed on Dec 06, 2019 09:18 Manual Lymphocytes 34.7 % Manual Monocytes 6.1 % Manual Eosinophils 1.0 % Manual Basophils 0.5 % Test performed on Nov 07, 2019 09:20 CEA 1.6 ng/mL Impression: Invasive moderately differentiated adenocarcinoma involving cecum per right hemicolectomy done on 09/05/2019 Final pathology report showed invasive moderately differentiated colonic adenocarcinoma involving cecum, ileocecal valve, appendiceal lumen. Neoplasm invades through the entire bowel wall into the pericolonic adipose tissue, focally involving inked serosal margins T4a 2 out of 24 lymph nodes positive for metastatic disease pN1 next Stage IIIB MSI/MMR status intact discussed with patient her disease status and treatment options. The case was also discussed with the pathologist regarding positive serosal margin mentioned in final pathology report. And he will review it again and get back to us in the meantime we elected to proceed with adjuvant chemotherapy, patient was concerned about copayments and based on cost and efficacy, oxaliplatin/capecitabine would be an appropriate choice. We'll consider oxaliplatin 130 mg/m??? every 3 weeks and Xeloda 850 mg/m??? twice a day day 1 through 14 and repeat every 21 days. We will consider minimum 4 cycles at least and if tolerated, will complete the recommended 8 cycles. She began her first cycle CapeOx on 11/07/2019. developed severe toxicity to oxaliplatine.g. diarrhea abdominal pain, generalized weakness and fatigue, palpitation, lower extremity edema so oxaliplatin was discontinued after 1 dose and she was switched to Xeloda alone, 14 days on and then repeat every 21 days for 6 months on 11/29/2019 Plan: Discussed with patient regarding her labs white blood count 6.1 hemoglobin 12.4 crit 37.6 platelets 153,000 CMP within normal limits Clinically , patient is doing reasonably well, tolerating adjuvant chemotherapy with oral Xeloda 1300 mg by mouth twice a day day 1 through 14 every 21 days well but with expected side effects e.g. now with tenderness and redness involving bilateral fingertips and some discomfort in the heel but no skin peeling or blisters,, could be an early sign of [id number] syndrome. At this point, we will consider Xeloda dose reduction to 1000 mg by mouth twice a day day 1 through 14-21 days from 1300 mg by mouth twice a day, Patient was advised to call us if there is a worsening of tenderness in her hands or feet or any other new symptoms while on on modified dose of Xeloda. Patient will start next cycle in 4 days for 14 days and then we'll see her back in one month with CBC CMP .^Patient would prefer to go to her surgeon for port maintenance,] Signed By: Erick Mckinney M.D. <<Signature on File>>
--- NOTE | 2020-01-23 17:21 | ONC FU_ITS ---
Dr. Mckinney follow up note Patient: Meera Begum Unit #: [id number]: 1945 Dicatated By: Erick Mckinney M.D.Date of Visit:January 23, 2020 Telehealth Progress Note The patient has been informed that the visit may not be secure and acknowledged the information. I have explained the option of participating in a telephone or video visit during the [facility]-[address] [place] [address] emergency to the patient. After being given an opportunity to ask questions about and discuss this type of visit, the patient verbally consented to proceeding with the telephone/video visit. the patient understands that this service replaces an office visit and they may be billed and /or responsible for any applicable copayments History of Present Illness: Mrs. Begum is a 74-year-old female who in August 2019, was admitted to [facility] in [facility] with abdominal pain and nausea. She had had a two history of dyspeptic symptoms as well as a gurgling sensation in the upper abdomen. She had some pain in the right upper quadrant as well. She presented with nausea but no vomiting or diarrhea. She states she had not had constipation prior to that admission and denied any dark tarry stools. She underwent evaluation in the emergency room, was found to have cholelithiasis however her CT of the abdomen pelvis showed masslike thickening at the ilio cecal valve. This was causing a proximal partial small bowel obstruction. surgery was consulted patient underwent colonoscopy on 09/04/2019, and she was found to have cecal mass and remaining exam was unremarkable. She did have a small bowel series on 09/02/2019. There was no evidence of significant small bowel obstruction as contrast passed from the stomach and small bowel into the colon within 1 hour (normal transit time is within 3 hours). The patient's known iliac mass was not well demonstrated on that study. A colonoscopy was recommended and performed to the cecum on 09/04/[address] Fernandez. Postop diagnosis was cecal mass. Dr. Fernandez recommended right hemicolectomy and an open cholecystectomy at the same time. Mrs. Begum underwent right hemicolectomy and ileocolonic anastomosis, cholecystectomy for cecal mass and cholelithiasis on 09/05/2019. On postop day 4 she still had no bowel sounds and was having some pain at the superior portion of her incision. She was diagnosed with postop ileus and TPN was started. Mrs. Begum was discharged from [facility] on September 15, 2019 with a discharge diagnosis of acute cholelithiasis, partial bowel obstruction secondary to cecal mass and transmural adenocarcinoma of the colon with 2+ lymph nodes. The pathology report from 09/05/2019 reports: cecum: Ascending colon and attached terminal ileum (Joaquin ileocolectomy) 1. Invasive moderately differentiated colonic adenocarcinoma involving the cecum, ileocecal valve and appendiceal lumen. 2 neoplasm invades to the entire bowel wall into the pericolonic adipose tissue, focally involving linked serosal margins. 3 proximal and distal margins of the resection are free of neoplasm. 4 large tubulovillous villous adenoma precursor lesion identified within the invasive tumor. 5. Lymph nodes pericolonic total of 24 were removed and 2 revealed metastatic adenocarcinoma. The gallbladder just showed chronic cholecystitis no evidence of malignancy. Colonic mucosa tissue and anastomosis 1. Benign segment of large bowel, clinically anastomotic tissue with no tumor seen. 2/24 lymph nodes were removed, showed metastatic disease. Tumor site was felt to be cecum/ileocecal valve. Specimen integrity was intact. Histological type was adenocarcinoma histological grade G2, moderately differentiated. Tumor extension tumor invades through the muscularis precordia. Margins invasive carcinoma involves the inked serosal surface of the cecal focally. Mucosal margins uninvolved by invasive adenocarcinoma 13 cm proximal and 20 cm to distal. Pathologic stage classification per the [facility] [place] report on 09/05/2019 was pT4a, pN1, pMX. Her lab workup done on 09/13/2019 shows white blood count 8.4 hemoglobin 12.6 crit 38.9 platelets 193,000, CMP within normal limit except glucose 154. Because of posterior surgical margin, Mrs Begum was referred to radiation oncology and Dr. Ricks recommended radiation therapy after she completed her adjuvant chemotherapy. She was then referred to Dr Mckinney. did discuss this case with pathologist regarding positive serosal margin and and as per pathology, margins were clear.. He also requested Mismatch repair proteins on 10/10/2019.: MLH1 intact, MSH2 intact, MSH6 intact, PMS2 intact. Mrs Carbajal was offered treatment with oxliplatin and Xeloda. She had port placement on October 30, [address] Fernandez at [facility] She stated her first cycle on 11/07/2019. But with first dose of oxaliplatin, patient said she felt better for 2- 3 days and then developed abdomen pain and severe diarrhea and went to [facility] in [place], [place] she was diagnosed with urine tract infection, antibody was prescribed , as per patient she did not take antibiotic as she was feeling weak and tired having weakness in lower extremity along with palpitation. Then she went to [facility], but she was told she don't have urine tract infection, she may have stomach 'bug'. Subsequently she went to see her PMD, his impression was neither UTI or stomach bug. but With a concern regarding chemotherapy toxicity. oxaliplatin was discontinued after 1st cycle of chemotherapy and she was switched to Xeloda alone on 12/20/2019 e.g. 2 weeks on 1 week off, for 6-8 cycles. Evaluated via telephone, Patient denies any specific complaints, no fever or chills, no nausea or vomiting, no diarrhea constipation, no skin rash or [id number] rash., Tingling sensation in hands is also improving. Patient is tolerating reduced dose Xeloda e.g. thousand milligrams twice a day better. Patient completed her cycle today and now she is week off, before she start next cycle with modified dose order Xeloda. Patient had Port-A-Cath flushed in her surgeon's office on 01/18/2020 and next one is due in the mid February. . Medications: There is no information available for Current Medications - Patient. Allergies: Sulfa Antibiotics Review of Systems: Review of Systems is not available for this patient. Vital Signs: Vitals are not available for this patient. Performance Status: 0 - Fully active, able to carry on all predisease activities without restrictions. (ECOG) Physical Examination: ENMT - patient denies mouth sores, or thrush, or jaundice, Respiratory - patient denies any shortness of breath or wheezing, Cardiovascular - patient denies any tachycardia or palpitation, Abdomen - denies any abdominal pain or fullness, Extremities - denies any edema or rash. Lab/Imaging: Test performed on January 18, 2020 13:10 Glucose 103 mg/dL BUN 9 mg/dL Creatinine 0.5 mg/dL Cr Clearance (Est) 92.60 mL/min Sodium 140 mmol/L Potassium 3.9 mmol/L Chloride 104 mmol/L CO2 25 mmol/L Calcium 9.4 mg/dL Protein, Total 7.0 g/dL Albumin 4.2 g/dL Bilirubin, Total 1.4 mg/dL Alkaline Phosphatase 75 IU/L AST (SGOT) 34 IU/L ALT (SGPT) 25 IU/L WBC 5.4 10^9/L RBC 3.28 10^12/L HGB 11.9 g/dL HCT 35.8 % MCV 109.2 fl MCH 36.2 pg MCHC 33 g/dL RDW 22.7 % Platelet Count 115 10^9/L MPV 9.4 fL Manual Lymphocytes 34.7 % Manual Monocytes 8.3 % Manual Eosinophils 0.5 % Manual Basophils 0.9 % Test performed on Jan 03, 2020 10:40 Anion Gap 16.9 Globulin 2.9 g/dL Neutrophils 3.5 10 3/uL Lymphocytes 2.0 10 3/uL Monocytes 0.5 10 3/uL Eosinophils 0.0 10 3/uL Basophils 0.0 10 3/uL Neutrophil % 57.1 % Lymphocyte % 33.1 % Monocyte % 8.6 % Eosinophil % 0.7 % Basophils % 0.3 % Test performed on Nov 07, 2019 09:20 CEA 1.6 ng/mL Impression: Invasive moderately differentiated adenocarcinoma involving cecum per right hemicolectomy done on 09/05/2019 Final pathology report showed invasive moderately differentiated colonic adenocarcinoma involving cecum, ileocecal valve, appendiceal lumen. Neoplasm invades through the entire bowel wall into the pericolonic adipose tissue, focally involving inked serosal margins T4a 2 out of 24 lymph nodes positive for metastatic disease pN1 next Stage IIIB MSI/MMR status intact discussed with patient her disease status and treatment options. The case was also discussed with the pathologist regarding positive serosal margin mentioned in final pathology report. And he will review it again and get back to us in the meantime we elected to proceed with adjuvant chemotherapy, patient was concerned about copayments and based on cost and efficacy, oxaliplatin/capecitabine would be an appropriate choice. We'll consider oxaliplatin 130 mg/m??? every 3 weeks and Xeloda 850 mg/m??? twice a day day 1 through 14 and repeat every 21 days. We will consider minimum 4 cycles at least and if tolerated, will complete the recommended 8 cycles. She began her first cycle CapeOx on 11/07/2019. developed severe toxicity to oxaliplatine.g. diarrhea abdominal pain, generalized weakness and fatigue, palpitation, lower extremity edema so oxaliplatin was discontinued after 1 dose and she was switched to Xeloda alone, 14 days on and then repeat every 21 days for 6 months on 11/29/2019 Plan: Discussed with patient via phone, regarding her labs from 01/18/2020 which showed white blood count 5.4 hemoglobin 11.9 hematocrit 35.8 platelets 115,000 CMP within normal limit except total bilirubin 1.4. Clinically, patient is doing well, tolerating modified dose oral Xeloda well but with expected side effects. This and will complete her current cycle today and then she has a week off before starting next cycle with oral Xeloda. All lab workup looks reasonable except mild increase in bilirubin, but with normal LFTs. We will continue to monitor and order her modified dose oral Xeloda. And then patient will go to her surgeon's office in mid February for port maintenance, at that time, we'll request CBC CMP. And patient prefer telemedicine evaluation.^, time spent on the phone, 6 minutes] Signed By: Erick Mckinney M.D. <<Signature on File>>
== END 2020-02-04 23:59 | disposition home or self-care (01) ==
LOC: ONCMED 06:42
PROVIDERS: PCP Family Medicine; Visit Provider Internal Medicine Hematology & Oncology
DX: C18.0 Malignant neoplasm of cecum (principal); C77.2 Secondary and unspecified malignant neoplasm of intra-abdominal lymph nodes; L98.9 Disorder of the skin and subcutaneous tissue, unspecified; T45.1X5A Adverse effect of antineoplastic and immunosuppressive drugs, initial encounter; Z79.899 Other long term (current) drug therapy; Z90.49 Acquired absence of other specified parts of digestive tract

== ENCOUNTER 2020-02-16 06:55 | Outpatient (RCR) | payer MEDICARE, SELFPAY ==
--- NOTE | 2020-02-16 11:29 | ONC FU_ITS ---
Dr. Mckinney follow up note Patient: Meera Begum Unit #: [id number]: [id number] Dicatated By: Erick Mckinney M.D.Date of Visit:Feb 16, 2020 Onc Med Follow-up/Prog Note History of Present Illness: Mrs. Begum is a 74-year-old female who in August 2019, was admitted to [facility] in [facility] with abdominal pain and nausea. She had had a two history of dyspeptic symptoms as well as a gurgling sensation in the upper abdomen. She had some pain in the right upper quadrant as well. She presented with nausea but no vomiting or diarrhea. She states she had not had constipation prior to that admission and denied any dark tarry stools. She underwent evaluation in the emergency room, was found to have cholelithiasis however her CT of the abdomen pelvis showed masslike thickening at the ilio cecal valve. This was causing a proximal partial small bowel obstruction. surgery was consulted patient underwent colonoscopy on 09/04/2019, and she was found to have cecal mass and remaining exam was unremarkable. She did have a small bowel series on 09/02/2019. There was no evidence of significant small bowel obstruction as contrast passed from the stomach and small bowel into the colon within 1 hour (normal transit time is within 3 hours). The patient's known iliac mass was not well demonstrated on that study. A colonoscopy was recommended and performed to the cecum on 09/04/[address] Fernandez. Postop diagnosis was cecal mass. Dr. Fernandez recommended right hemicolectomy and an open cholecystectomy at the same time. Mrs. Begum underwent right hemicolectomy and ileocolonic anastomosis, cholecystectomy for cecal mass and cholelithiasis on 09/05/2019. On postop day 4 she still had no bowel sounds and was having some pain at the superior portion of her incision. She was diagnosed with postop ileus and TPN was started. Mrs. Begum was discharged from [facility] on September 15, 2019 with a discharge diagnosis of acute cholelithiasis, partial bowel obstruction secondary to cecal mass and transmural adenocarcinoma of the colon with 2+ lymph nodes. The pathology report from 09/05/2019 reports: cecum: Ascending colon and attached terminal ileum (Joaquin ileocolectomy) 1. Invasive moderately differentiated colonic adenocarcinoma involving the cecum, ileocecal valve and appendiceal lumen. 2 neoplasm invades to the entire bowel wall into the pericolonic adipose tissue, focally involving linked serosal margins. 3 proximal and distal margins of the resection are free of neoplasm. 4 large tubulovillous villous adenoma precursor lesion identified within the invasive tumor. 5. Lymph nodes pericolonic total of 24 were removed and 2 revealed metastatic adenocarcinoma. The gallbladder just showed chronic cholecystitis no evidence of malignancy. Colonic mucosa tissue and anastomosis 1. Benign segment of large bowel, clinically anastomotic tissue with no tumor seen. 2/24 lymph nodes were removed, showed metastatic disease. Tumor site was felt to be cecum/ileocecal valve. Specimen integrity was intact. Histological type was adenocarcinoma histological grade G2, moderately differentiated. Tumor extension tumor invades through the muscularis precordia. Margins invasive carcinoma involves the inked serosal surface of the cecal focally. Mucosal margins uninvolved by invasive adenocarcinoma 13 cm proximal and 20 cm to distal. Pathologic stage classification per the [facility] report on 09/05/2019 was pT4a, pN1, pMX. Her lab workup done on 09/13/2019 shows white blood count 8.4 hemoglobin 12.6 crit 38.9 platelets 193,000, CMP within normal limit except glucose 154. Because of posterior surgical margin, Mrs Begum was referred to radiation oncology and Dr. Ricks recommended radiation therapy after she completed her adjuvant chemotherapy. She was then referred to Dr Mckinney. did discuss this case with pathologist regarding positive serosal margin and and as per pathology, margins were clear.. He also requested Mismatch repair proteins on 10/10/2019.: MLH1 intact, MSH2 intact, MSH6 intact, PMS2 intact. Mrs Carbajal was offered treatment with oxliplatin and Xeloda. She had port placement on October 30, [address] Fernandez at [facility] She stated her first cycle on 11/07/2019. But with first dose of oxaliplatin, patient said she felt better for 2- 3 days and then developed abdomen pain and severe diarrhea and went to [facility] in [place], [place] she was diagnosed with urine tract infection, antibody was prescribed , as per patient she did not take antibiotic as she was feeling weak and tired having weakness in lower extremity along with palpitation. Then she went to [facility], but she was told she don't have urine tract infection, she may have stomach 'bug'. Subsequently she went to see her PMD, his impression was neither UTI or stomach bug. but With a concern regarding chemotherapy toxicity. oxaliplatin was discontinued after 1st cycle of chemotherapy and she was switched to Xeloda alone on 12/20/2019 e.g. 2 weeks on 1 week off, for 6-8 cycles. Evaluated via telephone, .Patient denies any specific complaints except fingertip tenderness, which is improving but no redness or rash involving palms or feet. No skin rash, no mouth sores, no diarrhea, no jaundice, no fever or chills, no nausea or vomiting, no diarrhea or constipation, no abdominal pain. Patient is tolerating Xeloda well otherwise she completed her last course on February 14, 2020 and next one is due on February 21, 2020 which she will complete on March 06, 2020. Medications: There is no information available for Current Medications - Patient. Allergies: Sulfa Antibiotics Review of Systems: Review of Systems is not available for this patient. Vital Signs: Vitals are not available for this patient. Performance Status: 0 - Fully active, able to carry on all predisease activities without restrictions. (ECOG) Physical Examination: ENMT - Patient denies any mouth sores or thrush or jaundice, Respiratory - Patient denies any shortness of breath or wheezing, Cardiovascular - Patient denies any palpitation or tachycardia, Abdomen - Patient denies any abdominal pain or fullness, Extremities - Patient denies any edema or rash but mild tenderness in the fingertips which is improving. Lab/Imaging: Test performed on Feb 14, 2020 09:53 Glucose 100 mg/dL BUN 13 mg/dL Creatinine 0.6 mg/dL Cr Clearance (Est) 77.17 mL/min Sodium 142 mmol/L Potassium 3.5 mmol/L Chloride 106 mmol/L CO2 26 mmol/L Calcium 9.2 mg/dL Protein, Total 7.1 g/dL Albumin 4.3 g/dL Bilirubin, Total 0.9 mg/dL Alkaline Phosphatase 29 IU/L AST (SGOT) 19 IU/L ALT (SGPT) 71 IU/L WBC 3.9 10^9/L RBC 3.08 10^12/L HGB 12.3 g/dL HCT 36.3 % MCV 117.9 fl MCH 39.9 pg MCHC 34 g/dL RDW 17.3 % Platelet Count 120 10^9/L MPV 11.6 fL Test performed on January 18, 2020 13:10 Manual Lymphocytes 34.7 % Manual Monocytes 8.3 % Manual Eosinophils 0.5 % Manual Basophils 0.9 % Test performed on Jan 03, 2020 10:40 Anion Gap 16.9 Globulin 2.9 g/dL Neutrophils 3.5 10 3/uL Lymphocytes 2.0 10 3/uL Monocytes 0.5 10 3/uL Eosinophils 0.0 10 3/uL Basophils 0.0 10 3/uL Neutrophil % 57.1 % Lymphocyte % 33.1 % Monocyte % 8.6 % Eosinophil % 0.7 % Basophils % 0.3 % Test performed on Nov 07, 2019 09:20 CEA 1.6 ng/mL Impression: Invasive moderately differentiated adenocarcinoma involving cecum per right hemicolectomy done on 09/05/2019 Final pathology report showed invasive moderately differentiated colonic adenocarcinoma involving cecum, ileocecal valve, appendiceal lumen. Neoplasm invades through the entire bowel wall into the pericolonic adipose tissue, focally involving inked serosal margins T4a 2 out of 24 lymph nodes positive for metastatic disease pN1 next Stage IIIB MSI/MMR status intact discussed with patient her disease status and treatment options. The case was also discussed with the pathologist regarding positive serosal margin mentioned in final pathology report. And he will review it again and get back to us in the meantime we elected to proceed with adjuvant chemotherapy, patient was concerned about copayments and based on cost and efficacy, oxaliplatin/capecitabine would be an appropriate choice. We'll consider oxaliplatin 130 mg/m??? every 3 weeks and Xeloda 850 mg/m??? twice a day day 1 through 14 and repeat every 21 days. We will consider minimum 4 cycles at least and if tolerated, will complete the recommended 8 cycles. She began her first cycle CapeOx on 11/07/2019. developed severe toxicity to oxaliplatine.g. diarrhea abdominal pain, generalized weakness and fatigue, palpitation, lower extremity edema so oxaliplatin was discontinued after 1 dose and she was switched to Xeloda alone, 14 days on and then repeat every 21 days for 6 months on 11/29/2019 Plan: Discussed with patient via phone,Regarding her labs white blood count 3.9 hemoglobin 12.3 hematocrit 36.3 platelets 120,000 CMP within normal limit except ALT 71, otherwise bilirubin normalized Clinically, patient is doing well, tolerating adjuvant chemotherapy with single agent Xeloda well but with expected side effects. Her blood count looks reasonable, persistent but stable mild thrombocytopenia and mild leukopenia, her counts should recover further by February 21, 2020 when her next treatment with oral Xeloda is due. Patient will complete her 14 days therapy on March 06, 2020 and then will check her CBC CMP on March 08, 2020 and phone call evaluation on March 11, 2020. Her CMP showsed elevated ALT but normal AST and bilirubin and alk phos, could be lab error, will monitor.Time spent on the phone about 10 minutes Signed By: Erick Mckinney M.D. <<Signature on File>>
== END 2020-03-05 23:59 | disposition home or self-care (01) ==
LOC: ONCMED 06:55
PROVIDERS: PCP Family Medicine; Visit Provider Internal Medicine Hematology & Oncology
DX: C18.0 Malignant neoplasm of cecum (principal); C77.2 Secondary and unspecified malignant neoplasm of intra-abdominal lymph nodes; D70.1 Agranulocytosis secondary to cancer chemotherapy; D69.59 Other secondary thrombocytopenia; T45.1X5A Adverse effect of antineoplastic and immunosuppressive drugs, initial encounter; Z79.899 Other long term (current) drug therapy; Z90.49 Acquired absence of other specified parts of digestive tract

== ENCOUNTER 2020-03-28 06:39 | Outpatient (RCR) | payer MEDICARE, SELFPAY ==
--- NOTE | 2020-03-07 15:34 | ONC FU_ITS ---
Dr. Mckinney follow up note Patient: Meera Begum Unit #: [id number]: [id number] Dicatated By: Erick Mckinney M.D.Date of Visit:Mar 07, 2020 Telehealth Progress Note The patient has been informed that the visit may not be secure and acknowledged the information. I have explained the option of participating in a telephone or video visit during the [facility] [place] [id number] emergency to the patient. After being given an opportunity to ask questions about and discuss this type of visit, the patient verbally consented to proceeding with the telephone/video visit. the patient understands that this service replaces an office visit and they may be billed and /or responsible for any applicable copayments History of Present Illness: Mrs. Begum is a 74-year-old female who in August 2019, was admitted to [facility] in [facility] with abdominal pain and nausea. She had had a two history of dyspeptic symptoms as well as a gurgling sensation in the upper abdomen. She had some pain in the right upper quadrant as well. She presented with nausea but no vomiting or diarrhea. She states she had not had constipation prior to that admission and denied any dark tarry stools. She underwent evaluation in the emergency room, was found to have cholelithiasis however her CT of the abdomen pelvis showed masslike thickening at the ilio cecal valve. This was causing a proximal partial small bowel obstruction. surgery was consulted patient underwent colonoscopy on 09/04/2019, and she was found to have cecal mass and remaining exam was unremarkable. She did have a small bowel series on 09/02/2019. There was no evidence of significant small bowel obstruction as contrast passed from the stomach and small bowel into the colon within 1 hour (normal transit time is within 3 hours). The patient's known iliac mass was not well demonstrated on that study. A colonoscopy was recommended and performed to the cecum on 09/04/[address] Fernandez. Postop diagnosis was cecal mass. Dr. Fernandez recommended right hemicolectomy and an open cholecystectomy at the same time. Mrs. Begum underwent right hemicolectomy and ileocolonic anastomosis, cholecystectomy for cecal mass and cholelithiasis on 09/05/2019. On postop day 4 she still had no bowel sounds and was having some pain at the superior portion of her incision. She was diagnosed with postop ileus and TPN was started. Mrs. Begum was discharged from [facility] on September 15, 2019 with a discharge diagnosis of acute cholelithiasis, partial bowel obstruction secondary to cecal mass and transmural adenocarcinoma of the colon with 2+ lymph nodes. The pathology report from 09/05/2019 reports: cecum: Ascending colon and attached terminal ileum (Joaquin ileocolectomy) 1. Invasive moderately differentiated colonic adenocarcinoma involving the cecum, ileocecal valve and appendiceal lumen. 2 neoplasm invades to the entire bowel wall into the pericolonic adipose tissue, focally involving linked serosal margins. 3 proximal and distal margins of the resection are free of neoplasm. 4 large tubulovillous villous adenoma precursor lesion identified within the invasive tumor. 5. Lymph nodes pericolonic total of 24 were removed and 2 revealed metastatic adenocarcinoma. The gallbladder just showed chronic cholecystitis no evidence of malignancy. Colonic mucosa tissue and anastomosis 1. Benign segment of large bowel, clinically anastomotic tissue with no tumor seen. 2/24 lymph nodes were removed, showed metastatic disease. Tumor site was felt to be cecum/ileocecal valve. Specimen integrity was intact. Histological type was adenocarcinoma histological grade G2, moderately differentiated. Tumor extension tumor invades through the muscularis precordia. Margins invasive carcinoma involves the inked serosal surface of the cecal focally. Mucosal margins uninvolved by invasive adenocarcinoma 13 cm proximal and 20 cm to distal. Pathologic stage classification per the [facility] report on 09/05/2019 was pT4a, pN1, pMX. Her lab workup done on 09/13/2019 shows white blood count 8.4 hemoglobin 12.6 crit 38.9 platelets 193,000, CMP within normal limit except glucose 154. Because of posterior surgical margin, Mrs Begum was referred to radiation oncology and Dr. Ricks recommended radiation therapy after she completed her adjuvant chemotherapy. She was then referred to Dr Mckinney. did discuss this case with pathologist regarding positive serosal margin and and as per pathology, margins were clear.. He also requested Mismatch repair proteins on 10/10/2019.: MLH1 intact, MSH2 intact, MSH6 intact, PMS2 intact. Mrs Carbajal was offered treatment with oxliplatin and Xeloda. She had port placement on October 30, [address] Fernandez at [facility] She stated her first cycle on 11/07/2019. But with first dose of oxaliplatin, patient said she felt better for 2- 3 days and then developed abdomen pain and severe diarrhea and went to [facility] in [place], [place] she was diagnosed with urine tract infection, antibody was prescribed , as per patient she did not take antibiotic as she was feeling weak and tired having weakness in lower extremity along with palpitation. Then she went to [facility] [place] [place] [facility], but she was told she don't have urine tract infection, she may have stomach 'bug'. Subsequently she went to see her PMD, his impression was neither UTI or stomach bug. but With a concern regarding chemotherapy toxicity. oxaliplatin was discontinued after 1st cycle of chemotherapy and she was switched to Xeloda alone on 12/20/2019 e.g. 2 weeks on 1 week off, for 6-8 cycles. Evaluated via telephone, Patient denies any specific complaints except tightness or some tenderness in her hands noticed some skin peeling from her heel again no blisters or pain or tenderness , no skin rash, no mouth sores, no jaundice, no diarrhea constipation and tolerating oral Xeloda well otherwise and completed last cycle on March 05, 2020 and will start next cycle on March 12, 2020 . Medications: There is no information available for Current Medications - Patient. Allergies: Sulfa Antibiotics Review of Systems: Review of Systems is not available for this patient. Vital Signs: Vitals are not available for this patient. Performance Status: 0 - Fully active, able to carry on all predisease activities without restrictions. (ECOG) Physical Examination: ENMT - Patient denies any mouth sores or thrush or jaundice, Respiratory - Denies any shortness of breath or wheezing, Cardiovascular - Denies any tachycardia or palpitation, Abdomen - Denies any abdominal pain or fullness, Extremities - Denies any visible edema but mild tenderness in the fingertips but no blisters or erythema. Lab/Imaging: Test performed on Mar 05, 2020 09:24 Glucose 115 mg/dL BUN 10 mg/dL Creatinine 0.6 mg/dL Cr Clearance (Est) 77.17 mL/min Sodium 142 mmol/L Potassium 3.7 mmol/L Chloride 103 mmol/L CO2 28 mmol/L Calcium 9.7 mg/dL Protein, Total 7.2 g/dL Albumin 4.4 g/dL Bilirubin, Total 0.8 mg/dL Alkaline Phosphatase 67 IU/L AST (SGOT) 27 IU/L ALT (SGPT) 17 IU/L WBC 4.4 10^9/L RBC 3.12 10^12/L HGB 12.9 g/dL HCT 37.2 % MCV 119.2 fl MCH 41.3 pg MCHC 35 g/dL RDW 15.7 % Platelet Count 120 10^9/L MPV 11.1 fL Neutrophils (Gran) 2.6 10^9/L Lymphocytes 1.4 10^9/L Monocytes 0.3 10^9/L Eosinophils 0.0 10^9/L Basophils 0.0 10^9/L Manual Lymphocytes 32.7 % Manual Monocytes 7.7 % Manual Eosinophils 0.2 % Manual Basophils 0.7 % Test performed on Jan 03, 2020 10:40 Anion Gap 16.9 Globulin 2.9 g/dL Neutrophil % 57.1 % Lymphocyte % 33.1 % Monocyte % 8.6 % Eosinophil % 0.7 % Basophils % 0.3 % Test performed on Nov 07, 2019 09:20 CEA 1.6 ng/mL Impression: Invasive moderately differentiated adenocarcinoma involving cecum per right hemicolectomy done on 09/05/2019 Final pathology report showed invasive moderately differentiated colonic adenocarcinoma involving cecum, ileocecal valve, appendiceal lumen. Neoplasm invades through the entire bowel wall into the pericolonic adipose tissue, focally involving inked serosal margins T4a 2 out of 24 lymph nodes positive for metastatic disease pN1 next Stage IIIB MSI/MMR status intact discussed with patient her disease status and treatment options. The case was also discussed with the pathologist regarding positive serosal margin mentioned in final pathology report. And he will review it again and get back to us in the meantime we elected to proceed with adjuvant chemotherapy, patient was concerned about copayments and based on cost and efficacy, oxaliplatin/capecitabine would be an appropriate choice. We'll consider oxaliplatin 130 mg/m??? every 3 weeks and Xeloda 850 mg/m??? twice a day day 1 through 14 and repeat every 21 days. We will consider minimum 4 cycles at least and if tolerated, will complete the recommended 8 cycles. She began her first cycle CapeOx on 11/07/2019. developed severe toxicity to oxaliplatine.g. diarrhea abdominal pain, generalized weakness and fatigue, palpitation, lower extremity edema so oxaliplatin was discontinued after 1 dose and she was switched to Xeloda alone, 14 days on and then repeat every 21 days for 6 months on 11/29/2019 Plan: Discussed with patient via telephone, regarding her labs white blood count 4.4 hemoglobin 12.9 hematocrit 37.2 platelets 120,000 CMP within normal limits ALT 17 compared to 71 on February 14, 2020 Clinically, patient is doing well with no signs symptoms suggestive of recurrence of disease, tolerating adjuvant therapy with modified dose Xeloda well but with expected side effects e.g. mild thrombocytopenia but stable and now with discomfort/tenderness in the fingertips but no blisters and some skin peeling off her heel again no pain or blister or tenderness. Patient said the symptoms are usually during chemotherapy days and tend to improve when she is off chemotherapy. But is very mild and not bothersome to her. Patient is on modified dose of Xeloda, so far tolerating well she completed last 14 days course of Xeloda on March 05 and is she will start next cycle on March 12, 2020. As per patient she is scheduled for follow-up colonoscopy with Dr. Fernandez on March 29, 2020 and she will go to her office on March 26 for port flush and I will send her request for CBC CMP to be done on March 26, 2020 and we will see patient back on March 27, 2020, patient prefer telemedicine. Patient was advised in case there is a worsening of her hand and feet symptoms or rash or any blister, she need to stop Xeloda immediately and need to call us.^Total time spent on telephone about 7 minutes] Signed By: Erick Mckinney M.D. <<Signature on File>>
--- NOTE | 2020-03-28 16:27 | ONC FU_ITS ---
Dr. Mckinney follow up note Patient: Meera Begum Unit #: [id number]: 1945 Dicatated By: Erick Mckinney M.D.Date of Visit:Mar 28, 2020 Telehealth Progress Note The patient has been informed that the visit may not be secure and acknowledged the information. I have explained the option of participating in a telephone or video visit during the [facility]-[address] [place] [address] emergency to the patient. After being given an opportunity to ask questions about and discuss this type of visit, the patient verbally consented to proceeding with the telephone/video visit. the patient understands that this service replaces an office visit and they may be billed and /or responsible for any applicable copayments History of Present Illness: Mrs. Begum is a 74-year-old female who in August 2019, was admitted to [facility] in [facility] with abdominal pain and nausea. She had had a two history of dyspeptic symptoms as well as a gurgling sensation in the upper abdomen. She had some pain in the right upper quadrant as well. She presented with nausea but no vomiting or diarrhea. She states she had not had constipation prior to that admission and denied any dark tarry stools. She underwent evaluation in the emergency room, was found to have cholelithiasis however her CT of the abdomen pelvis showed masslike thickening at the ilio cecal valve. This was causing a proximal partial small bowel obstruction. surgery was consulted patient underwent colonoscopy on 09/04/2019, and she was found to have cecal mass and remaining exam was unremarkable. She did have a small bowel series on 09/02/2019. There was no evidence of significant small bowel obstruction as contrast passed from the stomach and small bowel into the colon within 1 hour (normal transit time is within 3 hours). The patient's known iliac mass was not well demonstrated on that study. A colonoscopy was recommended and performed to the cecum on 09/04/[address] Fernandez. Postop diagnosis was cecal mass. Dr. Fernandez recommended right hemicolectomy and an open cholecystectomy at the same time. Mrs. Begum underwent right hemicolectomy and ileocolonic anastomosis, cholecystectomy for cecal mass and cholelithiasis on 09/05/2019. On postop day 4 she still had no bowel sounds and was having some pain at the superior portion of her incision. She was diagnosed with postop ileus and TPN was started. Mrs. Begum was discharged from [facility] on September 15, 2019 with a discharge diagnosis of acute cholelithiasis, partial bowel obstruction secondary to cecal mass and transmural adenocarcinoma of the colon with 2+ lymph nodes. The pathology report from 09/05/2019 reports: cecum: Ascending colon and attached terminal ileum (Joaquin ileocolectomy) 1. Invasive moderately differentiated colonic adenocarcinoma involving the cecum, ileocecal valve and appendiceal lumen. 2 neoplasm invades to the entire bowel wall into the pericolonic adipose tissue, focally involving linked serosal margins. 3 proximal and distal margins of the resection are free of neoplasm. 4 large tubulovillous villous adenoma precursor lesion identified within the invasive tumor. 5. Lymph nodes pericolonic total of 24 were removed and 2 revealed metastatic adenocarcinoma. The gallbladder just showed chronic cholecystitis no evidence of malignancy. Colonic mucosa tissue and anastomosis 1. Benign segment of large bowel, clinically anastomotic tissue with no tumor seen. 2/24 lymph nodes were removed, showed metastatic disease. Tumor site was felt to be cecum/ileocecal valve. Specimen integrity was intact. Histological type was adenocarcinoma histological grade G2, moderately differentiated. Tumor extension tumor invades through the muscularis precordia. Margins invasive carcinoma involves the inked serosal surface of the cecal focally. Mucosal margins uninvolved by invasive adenocarcinoma 13 cm proximal and 20 cm to distal. Pathologic stage classification per the [facility] report on 09/05/2019 was pT4a, pN1, pMX. Her lab workup done on 09/13/2019 shows white blood count 8.4 hemoglobin 12.6 crit 38.9 platelets 193,000, CMP within normal limit except glucose 154. Because of posterior surgical margin, Mrs Begum was referred to radiation oncology and Dr. Ricks recommended radiation therapy after she completed her adjuvant chemotherapy. She was then referred to Dr Mckinney. did discuss this case with pathologist regarding positive serosal margin and and as per pathology, margins were clear.. He also requested Mismatch repair proteins on 10/10/2019.: MLH1 intact, MSH2 intact, MSH6 intact, PMS2 intact. Mrs Carbajal was offered treatment with oxliplatin and Xeloda. She had port placement on October 30, [address] Fernandez at [facility] She stated her first cycle on 11/07/2019. But with first dose of oxaliplatin, patient said she felt better for 2- 3 days and then developed abdomen pain and severe diarrhea and went to [facility] in [place], [place] she was diagnosed with urine tract infection, antibody was prescribed , as per patient she did not take antibiotic as she was feeling weak and tired having weakness in lower extremity along with palpitation. Then she went to [facility], but she was told she don't have urine tract infection, she may have stomach 'bug'. Subsequently she went to see her PMD, his impression was neither UTI or stomach bug. but With a concern regarding chemotherapy toxicity. oxaliplatin was discontinued after 1st cycle of chemotherapy and she was switched to Xeloda alone on 12/20/2019 e.g. 2 weeks on 1 week off, for 6-8 cycles. Evaluated via telephone, Denies any specific complaints, no fever chills, no nausea or vomiting, no diarrhea constipation, no mouth sores. Patient said she enjoyed her chemotherapy week off as during oral chemotherapy cycle she usually experience mild fatigue, said it could be mental too. Otherwise no peripheral numbness, no rash or jaundice. Her next treatment is due on April 03, 2020 . Medications: amLODIPine Besylate 1 Tablet (of 5 mg) Oral daily Allergies: Sulfa Antibiotics Review of Systems: Review of Systems is not available for this patient. Vital Signs: Vitals are not available for this patient. Performance Status: 0 - Fully active, able to carry on all predisease activities without restrictions. (ECOG) Physical Examination: ENMT - Patient denies any mouth sores or thrush or jaundice, Respiratory - Patient denies any shortness of breath or wheezing, Cardiovascular - Patient denies any palpitation or tachycardia, Abdomen - Patient denies any abdominal pain or fullness, Extremities - Patient denies any lower extremity edema or rash. Lab/Imaging: Test performed on Mar 26, 2020 13:19 Glucose 103 mg/dL BUN 13 mg/dL Creatinine 0.6 mg/dL Cr Clearance (Est) 77.17 mL/min Sodium 140 mmol/L Potassium 3.9 mmol/L Chloride 107 mmol/L CO2 25 mmol/L Calcium 9.4 mg/dL Protein, Total 7.5 g/dL Albumin 4.6 g/dL Bilirubin, Total 1.1 mg/dL Alkaline Phosphatase 78 IU/L AST (SGOT) 29 IU/L ALT (SGPT) 18 IU/L WBC 5.7 10^9/L RBC 3.21 10^12/L HGB 13.0 g/dL HCT 37.4 % MCV 116.5 fl MCH 40.5 pg MCHC 35 g/dL RDW 14.9 % Platelet Count 117 10^9/L MPV 11.0 fL Neutrophils (Gran) 3.3 10^9/L Lymphocytes 1.9 10^9/L Monocytes 0.4 10^9/L Eosinophils 0.0 10^9/L Basophils 0.0 10^9/L Manual Lymphocytes 33.4 % Manual Monocytes 7.6 % Manual Eosinophils 0.0 % Manual Basophils 0.4 % Test performed on Jan 03, 2020 10:40 Anion Gap 16.9 Globulin 2.9 g/dL Neutrophil % 57.1 % Lymphocyte % 33.1 % Monocyte % 8.6 % Eosinophil % 0.7 % Basophils % 0.3 % Test performed on Nov 07, 2019 09:20 CEA 1.6 ng/mL Impression: Invasive moderately differentiated adenocarcinoma involving cecum per right hemicolectomy done on 09/05/2019 Final pathology report showed invasive moderately differentiated colonic adenocarcinoma involving cecum, ileocecal valve, appendiceal lumen. Neoplasm invades through the entire bowel wall into the pericolonic adipose tissue, focally involving inked serosal margins T4a 2 out of 24 lymph nodes positive for metastatic disease pN1 next Stage IIIB MSI/MMR status intact discussed with patient her disease status and treatment options. The case was also discussed with the pathologist regarding positive serosal margin mentioned in final pathology report. And he will review it again and get back to us in the meantime we elected to proceed with adjuvant chemotherapy, patient was concerned about copayments and based on cost and efficacy, oxaliplatin/capecitabine would be an appropriate choice. We'll consider oxaliplatin 130 mg/m??? every 3 weeks and Xeloda 850 mg/m??? twice a day day 1 through 14 and repeat every 21 days. We will consider minimum 4 cycles at least and if tolerated, will complete the recommended 8 cycles. She began her first cycle CapeOx on 11/07/2019. developed severe toxicity to oxaliplatine.g. diarrhea abdominal pain, generalized weakness and fatigue, palpitation, lower extremity edema so oxaliplatin was discontinued after 1 dose and she was switched to Xeloda alone, 14 days on and then repeat every 21 days for 6 months on 11/29/2019 Plan: Discussed with patient via telephone, about her white blood count 5.7 hemoglobin 13 hematocrit 37.4 platelets 117,000 CMP within normal limits Clinically, patient is doing well with no new complaints, tolerating adjuvant therapy with oral Xeloda well. Her follow-up lab within normal range except mild thrombocytopenia but stable. We will continue to monitor and patient will start next cycle on April 03, 2020. She is also scheduled for follow-up colonoscopy in the morning. Patient had her port flushed on March 26. Patient said recently, her PMD also added 5 mg of amlodipine on a daily basis for mild hypertension. We will repeat her labs, CBC CMP on April 22, 2020 and evaluate her on April 24, 2020 and if her labs looks reasonable she will start her next cycle with oral Xeloda on April 24, 2020.We will also follow-up with follow-up colonoscopy report when available to us.^Time spent on the phone about 6 minutes] Signed By: Erick Mckinney M.D. <<Signature on File>>
== END 2020-04-05 23:59 | disposition home or self-care (01) ==
LOC: ONCMED 06:39
PROVIDERS: PCP Family Medicine; Visit Provider Internal Medicine Hematology & Oncology
DX: C18.0 Malignant neoplasm of cecum (principal); C77.2 Secondary and unspecified malignant neoplasm of intra-abdominal lymph nodes; D69.59 Other secondary thrombocytopenia; L98.9 Disorder of the skin and subcutaneous tissue, unspecified; T45.1X5A Adverse effect of antineoplastic and immunosuppressive drugs, initial encounter; I10 Essential (primary) hypertension; Z79.899 Other long term (current) drug therapy

== ENCOUNTER 2020-06-04 05:36 | Outpatient (RCR) | payer MEDICARE, SELFPAY ==
--- NOTE | 2020-05-18 18:21 | ONC FU_ITS ---
[facility] Patient Note Patient: Meera Begum Unit #: [id number]: 1945 Dictated By: Paula FineDate of Visit: May 14, 2020 Onc MED Follow-Up/Prog Note The patient has been informed that the visit may not be secure and acknowledged the information. I have explained the option of participating in a telephone or video visit during the [facility] emergency to the patient. After being given an opportunity to ask questions about and discuss this type of visit, the patient verbally consented to proceeding with the telephone/video visit. the patient understands that this service replaces an office visit and they may be billed and /or responsible for any applicable copayments Chief Complaint: Adenocarcinoma of the cecum History of Present Illness: Mrs. Begum is a 74-year-old female who in August 2019, was admitted to [facility] in [facility] with abdominal pain and nausea. She had had a two history of dyspeptic symptoms as well as a gurgling sensation in the upper abdomen. She had some pain in the right upper quadrant as well. She presented with nausea but no vomiting or diarrhea. She states she had not had constipation prior to that admission and denied any dark tarry stools. She underwent evaluation in the emergency room, was found to have cholelithiasis however her CT of the abdomen pelvis showed masslike thickening at the ilio cecal valve. This was causing a proximal partial small bowel obstruction. surgery was consulted patient underwent colonoscopy on 09/04/2019, and she was found to have cecal mass and remaining exam was unremarkable. She did have a small bowel series on 09/02/2019. There was no evidence of significant small bowel obstruction as contrast passed from the stomach and small bowel into the colon within 1 hour (normal transit time is within 3 hours). The patient's known iliac mass was not well demonstrated on that study. A colonoscopy was recommended and performed to the cecum on 09/04/[address] Fernandez. Postop diagnosis was cecal mass. Dr. Fernandez recommended right hemicolectomy and an open cholecystectomy at the same time. Mrs. Begum underwent right hemicolectomy and ileocolonic anastomosis, cholecystectomy for cecal mass and cholelithiasis on 09/05/2019. On postop day 4 she still had no bowel sounds and was having some pain at the superior portion of her incision. She was diagnosed with postop ileus and TPN was started. Mrs. Begum was discharged from [facility] on September 15, 2019 with a discharge diagnosis of acute cholelithiasis, partial bowel obstruction secondary to cecal mass and transmural adenocarcinoma of the colon with 2+ lymph nodes. The pathology report from 09/05/2019 reports: cecum: Ascending colon and attached terminal ileum (Joaquin ileocolectomy) 1. Invasive moderately differentiated colonic adenocarcinoma involving the cecum, ileocecal valve and appendiceal lumen. 2 neoplasm invades to the entire bowel wall into the pericolonic adipose tissue, focally involving linked serosal margins. 3 proximal and distal margins of the resection are free of neoplasm. 4 large tubulovillous villous adenoma precursor lesion identified within the invasive tumor. 5. Lymph nodes pericolonic total of 24 were removed and 2 revealed metastatic adenocarcinoma. The gallbladder just showed chronic cholecystitis no evidence of malignancy. Colonic mucosa tissue and anastomosis 1. Benign segment of large bowel, clinically anastomotic tissue with no tumor seen. 2/24 lymph nodes were removed, showed metastatic disease. Tumor site was felt to be cecum/ileocecal valve. Specimen integrity was intact. Histological type was adenocarcinoma histological grade G2, moderately differentiated. Tumor extension tumor invades through the muscularis precordia. Margins invasive carcinoma involves the inked serosal surface of the cecal focally. Mucosal margins uninvolved by invasive adenocarcinoma 13 cm proximal and 20 cm to distal. Pathologic stage classification per the [place] [facility] report on 09/05/2019 was pT4a, pN1, pMX. Her lab workup done on 09/13/2019 shows white blood count 8.4 hemoglobin 12.6 crit 38.9 platelets 193,000, CMP within normal limit except glucose 154. Because of posterior surgical margin, Mrs Begum was referred to radiation oncology and Dr. Ricks recommended radiation therapy after she completed her adjuvant chemotherapy. She was then referred to Dr Mckinney. did discuss this case with pathologist regarding positive serosal margin and and as per pathology, margins were clear.. He also requested Mismatch repair proteins on 10/10/2019.: MLH1 intact, MSH2 intact, MSH6 intact, PMS2 intact. Mrs Carbajal was offered treatment with oxliplatin and Xeloda. She had port placement on October 30, [address] Fernandez at [facility] She stated her first cycle on 11/07/2019. But with first dose of oxaliplatin, patient said she felt better for 2- 3 days and then developed abdomen pain and severe diarrhea and went to [facility] in [place], [place] she was diagnosed with urine tract infection, antibody was prescribed , as per patient she did not take antibiotic as she was feeling weak and tired having weakness in lower extremity along with palpitation. Then she went to [facility], but she was told she don't have urine tract infection, she may have stomach 'bug'. Subsequently she went to see her PMD, his impression was neither UTI or stomach bug. but With a concern regarding chemotherapy toxicity. The oxaliplatin was discontinued after 1st cycle of chemotherapy and she was switched to Xeloda alone on 12/20/2019 e.g. 2 weeks on 1 week off, for 6-8 cycles. Follow-up colonoscopy done on March 29, 2020 in [facility]. Ms Begum reports it was unremarkable. She continues on the Xeloda. She began her 7th cycle on 04/26/2020. Mrs. Begum is being evaluated by tele-visit today. We were unable to connect virtually so this is a phone visit. She states overall she is doing well. She denies any diarrhea or constipation. She states she has some generalized fatigue but overall it is well controlled and she states it is much better of the week that she is off of the Xeloda. She said that her fingertips are weird . They feel numb and tingly at times however she can hand so a mask but sometimes can berry picker a pen. She states that the weeks that she is off the Xeloda that her hands are good. She is due to resume results on Wednesday. She states that she did notice a couple of dry spots on her hands and actually had Munira bees Chapstick available and tried on her dry areas. She states it worked great. She has no further dry areas currently. She states that her hands feel a little but were not red they were not tender. They are no longer peeling or sloughing. She denies any tenderness or redness currently. She states that they are doing well. She denies any diarrhea or constipation as above. She has had no nausea to report. She denies mouth sores, sore throat or difficulty swallowing. She denies any urinary symptoms. She has had no worsening of the neuropathy as mentioned above and states that it does get better between treatments. She denies mouth sores. She states she is able to do all of her activities of daily living with no assistance and tolerates this well. She does have some fatigue but recovers well with rest. She has been eating well. She has no concerns today. Her ECOG is 0. Past Medical History: Anxiety (with panic attacks) Cholethiasis History of renal calculi White coat syndrome Past Surgical History: Cholecystectomy Right hemicolectomy Tonsillectomy Tubal ligation Colonoscopy in 2019 Allergies: Sulfa Antibiotics Medications: amLODIPine Besylate 1 Tablet (of 5 mg) Oral daily Family History: Ms. Begum's mother at age 88: dementia. Ms. Begum's father at age 72: Pancreatic Cancer. Social History: Ms. Begum is and she is retired. Ms. Begum has never smoked. She has no history of drinking. Ms. Begum reports the following support systems: lives with spouse, significant other, family, or friends, lives in an assisted living environment, no support system exists, and adequate transportation available for expected visits. Her diet consists of regular meals. She indicates her activity level as: light exercise. Review Of Symptoms: Constitutional Denies fevers, chills, night sweats, excessive fatigue or weight loss. Allergic/Immunologic No reactions. Eyes Denies significant visual changes. No diplopia. No amaurosis. ENMT Denies changes in hearing, sore throat, mouth sores, difficulty or changes in swallowing ability, and/or sinus drainage. Endocrine No diabetes, thyroid disease or hormone replacement. Denies hot flashes or night sweats. Hematologic/Lymphatic Denies easy bruising or bleeding. The patient denies any tender or palpable lymph nodes. Respiratory Denies dyspnea on exertion, chest pain, cough or hemoptysis. Denies orthopnea. Cardiovascular Denies anginal chest pain, palpitations or orthopnea. Gastrointestinal Denies nausea, vomiting, diarrhea, GI bleeding, or constipation. Denies change in bowel habits and/or stool color, no heartburn or early satiety. Genitourinary (F) No hematuria, hesitancy, incontinence, vaginal bleeding, discharge or other problems with urination. Musculoskeletal Denies joint pain, swelling or redness. No decreased range of motion. Integumentary Denies chronic rashes, inflammation, ulcerations or skin changes. Neurologic Denies headache, blurred vision, and no areas of focal weakness or numbness. Normal gait. See Above. Psychiatric Denies insomnia, depression, trevor or mood swings. Vital Signs: ,0 - Fully active, able to carry on all predisease activities without restrictions. (ECOG) Physical Examination: Laboratory:Test performed on May 10, 2020 10:23 Glucose 128 mg/dL BUN 11 mg/dL Creatinine 0.6 mg/dL Cr Clearance (Est) 77.17 mL/min Sodium 143 mmol/L Potassium 3.9 mmol/L Chloride 106 mmol/L CO2 30 mmol/L Calcium 9.8 mg/dL Protein, Total 7.4 g/dL Albumin 4.6 g/dL Bilirubin, Total 1.3 mg/dL Alkaline Phosphatase 64 IU/L AST (SGOT) 34 IU/L ALT (SGPT) 22 IU/L WBC 4.1 10^9/L RBC 3.28 10^12/L HGB 13.1 g/dL HCT 37.4 % MCV 114.0 fl MCH 39.9 pg MCHC 35 g/dL RDW 14.8 % Platelet Count 118 10^9/L MPV 11.2 fL Neutrophils (Gran) 2.4 10^9/L Lymphocytes 1.4 10^9/L Monocytes 0.3 10^9/L Eosinophils 0.0 10^9/L Manual Lymphocytes 33.5 % Manual Monocytes 7.6 % Manual Eosinophils 0.7 % Manual Basophils 0.2 % Basophils % 0.3 % Impression: Invasive moderately differentiated adenocarcinoma involving cecum per right hemicolectomy done on 09/05/2019 Final pathology report showed invasive moderately differentiated colonic adenocarcinoma involving cecum, ileocecal valve, appendiceal lumen. Neoplasm invades through the entire bowel wall into the pericolonic adipose tissue, focally involving inked serosal margins T4a 2 out of 24 lymph nodes positive for metastatic disease pN1 next Stage IIIB MSI/MMR status intact discussed with patient her disease status and treatment options. The case was also discussed with the pathologist regarding positive serosal margin mentioned in final pathology report. And he will review it again and get back to us in the meantime we elected to proceed with adjuvant chemotherapy, patient was concerned about copayments and based on cost and efficacy, oxaliplatin/capecitabine would be an appropriate choice. We'll consider oxaliplatin 130 mg/m??? every 3 weeks and Xeloda 850 mg/m??? twice a day day 1 through 14 and repeat every 21 days. We will consider minimum 4 cycles at least and if tolerated, will complete the recommended 8 cycles. She began her first cycle CapeOx on 11/07/2019. Unfortunately she developed severe toxicity to oxaliplatin: diarrhea, abdominal pain, generalized weakness and fatigue, palpitations and significant lower extremity edema. The oxaliplatin was discontinued after 1 dose and she was switched to Xeloda alone, 14 days on and then repeat every 21 days for 6 months on 11/29/2019. Ms Begum reports she underwent colonscopy on March 29, 2020 @ [facility] and it was normal. She began cycle 7 Xeloda on 04/26/2020. Plan: 1. Proceed with cycle 8 Xeloda on 05/17/2020. Her current dose is 1000 mg twice daily for 14 days and off 7 days. This will complete her current plan of care. 2. Labs from May 10, 2020 were reviewed in detail and discussed with Mrs. Scott and a copy was given to her. White count is 4.1 hemoglobin 13.1, platelets 118,000 ANC is 2400. Creatinine 0.6 potassium 3.9 random glucose 128 LFTs were normal. 3. We will plan for her to have follow-up in 3 to [address] Mckinney at which time she will need a CBC CMP and CEA. She may have her labs drawn at Dr. Fernandez's office via her port. She will require port flush for port maintenance at that time as well. 4. She is encouraged to use Imodium as needed if she has any diarrhea and reports antiemetics if she has any nausea. Thus far she has done well. 5. She may continue to use Munira bees Chapstick/lotion or any other thick emollient to her hands and feet as needed. 6. She reports she had colonoscopy on March 29, [address] at [facility] and reported that it was normal. We will request a formal report for our chart. 7. Mrs. Begum was encouraged to contact us in interim should questions or problems arise. Total time for tele-visit today was 12 minutes for review of labs, side effect identification and management and plan of care. Signed By: Paula Fine-, AOCNP Erick Mckinney MD <<Signature on File>>
--- NOTE | 2020-06-06 15:41 | ONC FU_ITS ---
Dr. Mckinney follow up note Patient: Meera Begum Unit #: [id number]: 1945 Dicatated By: Erick Mckinney M.D.Date of Visit:Jun 04, 2020 Onc Med Follow-up/Prog Note History of Present Illness: Mrs. Begum is a 74-year-old female who in August 2019, was admitted to [facility] in [facility] with abdominal pain and nausea. She had had a two history of dyspeptic symptoms as well as a gurgling sensation in the upper abdomen. She had some pain in the right upper quadrant as well. She presented with nausea but no vomiting or diarrhea. She states she had not had constipation prior to that admission and denied any dark tarry stools. She underwent evaluation in the emergency room, was found to have cholelithiasis however her CT of the abdomen pelvis showed masslike thickening at the ilio cecal valve. This was causing a proximal partial small bowel obstruction. surgery was consulted patient underwent colonoscopy on 09/04/2019, and she was found to have cecal mass and remaining exam was unremarkable. She did have a small bowel series on 09/02/2019. There was no evidence of significant small bowel obstruction as contrast passed from the stomach and small bowel into the colon within 1 hour (normal transit time is within 3 hours). The patient's known iliac mass was not well demonstrated on that study. A colonoscopy was recommended and performed to the cecum on 09/04/[address] Fernandez. Postop diagnosis was cecal mass. Dr. Fernandez recommended right hemicolectomy and an open cholecystectomy at the same time. Mrs. Begum underwent right hemicolectomy and ileocolonic anastomosis, cholecystectomy for cecal mass and cholelithiasis on 09/05/2019. On postop day 4 she still had no bowel sounds and was having some pain at the superior portion of her incision. She was diagnosed with postop ileus and TPN was started. Mrs. Begum was discharged from [facility] on September 15, 2019 with a discharge diagnosis of acute cholelithiasis, partial bowel obstruction secondary to cecal mass and transmural adenocarcinoma of the colon with 2+ lymph nodes. The pathology report from 09/05/2019 reports: cecum: Ascending colon and attached terminal ileum (Joaquin ileocolectomy) 1. Invasive moderately differentiated colonic adenocarcinoma involving the cecum, ileocecal valve and appendiceal lumen. 2 neoplasm invades to the entire bowel wall into the pericolonic adipose tissue, focally involving linked serosal margins. 3 proximal and distal margins of the resection are free of neoplasm. 4 large tubulovillous villous adenoma precursor lesion identified within the invasive tumor. 5. Lymph nodes pericolonic total of 24 were removed and 2 revealed metastatic adenocarcinoma. The gallbladder just showed chronic cholecystitis no evidence of malignancy. Colonic mucosa tissue and anastomosis 1. Benign segment of large bowel, clinically anastomotic tissue with no tumor seen. 2/24 lymph nodes were removed, showed metastatic disease. Tumor site was felt to be cecum/ileocecal valve. Specimen integrity was intact. Histological type was adenocarcinoma histological grade G2, moderately differentiated. Tumor extension tumor invades through the muscularis precordia. Margins invasive carcinoma involves the inked serosal surface of the cecal focally. Mucosal margins uninvolved by invasive adenocarcinoma 13 cm proximal and 20 cm to distal. Pathologic stage classification per the [facility] report on 09/05/2019 was pT4a, pN1, pMX. Her lab workup done on 09/13/2019 shows white blood count 8.4 hemoglobin 12.6 crit 38.9 platelets 193,000, CMP within normal limit except glucose 154. Because of posterior surgical margin, Mrs Begum was referred to radiation oncology and Dr. Ricks recommended radiation therapy after she completed her adjuvant chemotherapy. She was then referred to Dr Mckinney. did discuss this case with pathologist regarding positive serosal margin and and as per pathology, margins were clear.. He also requested Mismatch repair proteins on 10/10/2019.: MLH1 intact, MSH2 intact, MSH6 intact, PMS2 intact. Mrs Carbajal was offered treatment with oxliplatin and Xeloda. She had port placement on October 30, [address] Fernandez at [facility] She stated her first cycle on 11/07/2019. But with first dose of oxaliplatin, patient said she felt better for 2- 3 days and then developed abdomen pain and severe diarrhea and went to [facility] in [place], [place] she was diagnosed with urine tract infection, antibody was prescribed , as per patient she did not take antibiotic as she was feeling weak and tired having weakness in lower extremity along with palpitation. Then she went to [facility], but she was told she don't have urine tract infection, she may have stomach 'bug'. Subsequently she went to see her PMD, his impression was neither UTI or stomach bug. but With a concern regarding chemotherapy toxicity. The oxaliplatin was discontinued after 1st cycle of chemotherapy and she was switched to Xeloda alone on 12/20/2019 e.g. 2 weeks on 1 week off, for 6-8 cycles.Completed 8 cycles of modified Xeloda in May 2020 Follow-up colonoscopy done on March 29, 2020 in [facility] in [facility]. Ms Begum reports it was unremarkable. Evaluated via telephone, patient denies any specific complaints, no fever chills, no nausea or vomiting, no diarrhea or constipation, tolerated adjuvant chemotherapy with single agent modified dose Xeloda which she completed recently. Medications: amLODIPine Besylate 1 Tablet (of 5 mg) Oral daily Allergies: Sulfa Antibiotics Review of Systems: Review of Systems is not available for this patient. Vital Signs: Vitals are not available for this patient. Performance Status: 0 - Fully active, able to carry on all predisease activities without restrictions. (ECOG) Physical Examination: ENMT - Patient denies any mouth sores or thrush or jaundice, Respiratory - Patient denies any shortness of breath or wheezing, Cardiovascular - Patient denies any palpitation or tachycardia, Abdomen - Patient denies any abdominal pain or fullness, Extremities - Patient denies any lower extremity edema or rash. Lab/Imaging: Test performed on May 31, 2020 10:02 Glucose 101 mg/dL BUN 14 mg/dL Creatinine 0.6 mg/dL Cr Clearance (Est) 77.17 mL/min BUN/Creatinine Ratio 23 Absolute Value Sodium 143 mmol/L Potassium 4.1 mmol/L Chloride 106 mmol/L CO2 30 mmol/L Calcium 9.9 mg/dL Protein, Total 7.5 g/dL Albumin 4.7 g/dL Bilirubin, Total 1.3 mg/dL Alkaline Phosphatase 73 IU/L AST (SGOT) 31 IU/L ALT (SGPT) 20 IU/L WBC 5.1 10^9/L RBC 3.26 10^12/L HGB 13.0 g/dL HCT 36.9 % MCV 113.2 fl MCH 39.9 pg MCHC 35 g/dL RDW 14.6 % Platelet Count 126 10^9/L MPV 10.7 fL Neutrophils (Gran) 3.1 10^9/L Lymphocytes 1.6 10^9/L Monocytes 0.4 10^9/L Eosinophils 0.0 10^9/L Basophils 0.0 10^9/L Manual Lymphocytes 31.1 % Manual Monocytes 6.9 % Manual Eosinophils 0.4 % Manual Basophils 0.4 % Test performed on Jan 03, 2020 10:40 Anion Gap 16.9 Globulin 2.9 g/dL Neutrophil % 57.1 % Lymphocyte % 33.1 % Monocyte % 8.6 % Eosinophil % 0.7 % Basophils % 0.3 % Impression: Invasive moderately differentiated adenocarcinoma involving cecum per right hemicolectomy done on 09/05/2019 Final pathology report showed invasive moderately differentiated colonic adenocarcinoma involving cecum, ileocecal valve, appendiceal lumen. Neoplasm invades through the entire bowel wall into the pericolonic adipose tissue, focally involving inked serosal margins T4a 2 out of 24 lymph nodes positive for metastatic disease pN1 next Stage IIIB MSI/MMR status intact discussed with patient her disease status and treatment options. The case was also discussed with the pathologist regarding positive serosal margin mentioned in final pathology report. And he will review it again and get back to us in the meantime we elected to proceed with adjuvant chemotherapy, patient was concerned about copayments and based on cost and efficacy, oxaliplatin/capecitabine would be an appropriate choice. We'll consider oxaliplatin 130 mg/m??? every 3 weeks and Xeloda 850 mg/m??? twice a day day 1 through 14 and repeat every 21 days. We will consider minimum 4 cycles at least and if tolerated, will complete the recommended 8 cycles. She began her first cycle CapeOx on 11/07/2019. Unfortunately she developed severe toxicity to oxaliplatin: diarrhea, abdominal pain, generalized weakness and fatigue, palpitations and significant lower extremity edema. The oxaliplatin was discontinued after 1 dose and she was switched to Xeloda alone, 14 days on and then repeat every 21 days for 6 months on 11/29/2019. Ms Begum reports she underwent colonscopy on March 29, 2020 @ [facility] and it was normal. She began cycle 7 Xeloda on 04/26/2020. Plan: Discussed with patient regarding her labs white blood count 5.1 hemoglobin 13 hematocrit 36.9 platelets 126,000 CMP within normal limits Clinically, patient is doing well with no signs symptom suggestive of recurrence of disease, patient has completed 8 cycles of modified dose of Xeloda recently with that she has concluded her adjuvant chemotherapy, patient had follow-up colonoscopy done in March which was unremarkable. Now we will consider follow-up plan and she will return to clinic in 3 months with CBC CMP in the meantime she will continue with port maintenance with her surgeon in [facility] on monthly basis. Time spent on phone about 6 minutes Signed By: Erick Mckinney M.D. <<Signature on File>>
== END 2020-06-05 23:59 | disposition home or self-care (01) ==
LOC: ONCMED 05:36
PROVIDERS: PCP Family Medicine; Visit Provider Internal Medicine Hematology & Oncology
DX: C18.8 Malignant neoplasm of overlapping sites of colon (principal); C77.2 Secondary and unspecified malignant neoplasm of intra-abdominal lymph nodes; Z92.21 Personal history of antineoplastic chemotherapy; Z90.49 Acquired absence of other specified parts of digestive tract

== ENCOUNTER 2020-09-05 05:52 | Outpatient (CLI) | payer MEDICARE, SELFPAY ==
--- NOTE | 2020-09-05 15:26 | ONC FU_ITS ---
Dr. Mckinney follow up note Patient: Meera Begum Unit #: [id number]: 1945 Dicatated By: Erick Mckinney M.D.Date of Visit:Sep 05, 2020 Onc Med Follow-up/Prog Note History of Present Illness: Mrs. Begum is a 74-year-old female who in August 2019, was admitted to [facility] [place] [facility] in [facility] with abdominal pain and nausea. She had had a two history of dyspeptic symptoms as well as a gurgling sensation in the upper abdomen. She had some pain in the right upper quadrant as well. She presented with nausea but no vomiting or diarrhea. She states she had not had constipation prior to that admission and denied any dark tarry stools. She underwent evaluation in the emergency room, was found to have cholelithiasis however her CT of the abdomen pelvis showed masslike thickening at the ilio cecal valve. This was causing a proximal partial small bowel obstruction. surgery was consulted patient underwent colonoscopy on 09/04/2019, and she was found to have cecal mass and remaining exam was unremarkable. She did have a small bowel series on 09/02/2019. There was no evidence of significant small bowel obstruction as contrast passed from the stomach and small bowel into the colon within 1 hour (normal transit time is within 3 hours). The patient's known iliac mass was not well demonstrated on that study. A colonoscopy was recommended and performed to the cecum on 09/04/[address] Fernandez. Postop diagnosis was cecal mass. Dr. Fernandez recommended right hemicolectomy and an open cholecystectomy at the same time. Mrs. Begum underwent right hemicolectomy and ileocolonic anastomosis, cholecystectomy for cecal mass and cholelithiasis on 09/05/2019. On postop day 4 she still had no bowel sounds and was having some pain at the superior portion of her incision. She was diagnosed with postop ileus and TPN was started. Mrs. Begum was discharged from [facility] on September 15, 2019 with a discharge diagnosis of acute cholelithiasis, partial bowel obstruction secondary to cecal mass and transmural adenocarcinoma of the colon with 2+ lymph nodes. The pathology report from 09/05/2019 reports: cecum: Ascending colon and attached terminal ileum (Joaquin ileocolectomy) 1. Invasive moderately differentiated colonic adenocarcinoma involving the cecum, ileocecal valve and appendiceal lumen. 2 neoplasm invades to the entire bowel wall into the pericolonic adipose tissue, focally involving linked serosal margins. 3 proximal and distal margins of the resection are free of neoplasm. 4 large tubulovillous villous adenoma precursor lesion identified within the invasive tumor. 5. Lymph nodes pericolonic total of 24 were removed and 2 revealed metastatic adenocarcinoma. The gallbladder just showed chronic cholecystitis no evidence of malignancy. Colonic mucosa tissue and anastomosis 1. Benign segment of large bowel, clinically anastomotic tissue with no tumor seen. 2/24 lymph nodes were removed, showed metastatic disease. Tumor site was felt to be cecum/ileocecal valve. Specimen integrity was intact. Histological type was adenocarcinoma histological grade G2, moderately differentiated. Tumor extension tumor invades through the muscularis precordia. Margins invasive carcinoma involves the inked serosal surface of the cecal focally. Mucosal margins uninvolved by invasive adenocarcinoma 13 cm proximal and 20 cm to distal. Pathologic stage classification per the [facility] report on 09/05/2019 was pT4a, pN1, pMX. Her lab workup done on 09/13/2019 shows white blood count 8.4 hemoglobin 12.6 crit 38.9 platelets 193,000, CMP within normal limit except glucose 154. Because of posterior surgical margin, Mrs Begum was referred to radiation oncology and Dr. Ricks recommended radiation therapy after she completed her adjuvant chemotherapy. She was then referred to Dr Mckinney. did discuss this case with pathologist regarding positive serosal margin and and as per pathology, margins were clear.. He also requested Mismatch repair proteins on 10/10/2019.: MLH1 intact, MSH2 intact, MSH6 intact, PMS2 intact. Mrs Carbajal was offered treatment with oxliplatin and Xeloda. She had port placement on October 30, [address] Fernandez at [facility] She stated her first cycle on 11/07/2019. But with first dose of oxaliplatin, patient said she felt better for 2- 3 days and then developed abdomen pain and severe diarrhea and went to [facility] in [place], [place] she was diagnosed with urine tract infection, antibody was prescribed , as per patient she did not take antibiotic as she was feeling weak and tired having weakness in lower extremity along with palpitation. Then she went to [facility], but she was told she don't have urine tract infection, she may have stomach 'bug'. Subsequently she went to see her PMD, his impression was neither UTI or stomach bug. but With a concern regarding chemotherapy toxicity. The oxaliplatin was discontinued after 1st cycle of chemotherapy and she was switched to Xeloda alone on 12/20/2019 e.g. 2 weeks on 1 week off, for 6-8 cycles.Completed 8 cycles of modified Xeloda in May 2020 Follow-up colonoscopy done on March 29, 2020 in [facility] in [facility]. Ms Begum reports it was unremarkable. Evaluated via telephone, Patient denies any specific complaints, no melena or hematochezia, no abdominal pain, no jaundice, no fever chills. As per patient on August 06, 2020, all of a sudden she felt so good and since then she is more energetic, and no more mood swings. Medications: amLODIPine Besylate 1 Tablet (of 5 mg) Oral daily Allergies: Sulfa Antibiotics Review of Systems: Review of Systems is not available for this patient. Vital Signs: Vitals are not available for this patient. Performance Status: 0 - Fully active, able to carry on all predisease activities without restrictions. (ECOG) Physical Examination: ENMT - Patient denies any mouth sores, or jaundice, Respiratory - Denies any shortness of breath or wheezing, Cardiovascular - Denies any palpitation, Abdomen - Denies any abdominal pain or fullness, Extremities - Denies any pedal edema. Lab/Imaging: Test performed on Aug 27, 2020 13:15 Glucose 111 mg/dL BUN 15 mg/dL Creatinine 0.6 mg/dL Cr Clearance (Est) 77.17 mL/min Sodium 140 mmol/L Potassium 3.7 mmol/L Chloride 105 mmol/L CO2 27 mmol/L Calcium 9.8 mg/dL Protein, Total 8.1 g/dL Albumin 4.8 g/dL Bilirubin, Total 0.7 mg/dL Alkaline Phosphatase 90 IU/L AST (SGOT) 32 IU/L ALT (SGPT) 19 IU/L WBC 7.5 10^9/L RBC 4.09 10^12/L HGB 14.4 g/dL HCT 40.7 % MCV 99.5 fl MCH 35.2 pg MCHC 35 g/dL RDW 11.2 % Platelet Count 133 10^9/L MPV 11.3 fL Neutrophils (Gran) 5.5 10^9/L Lymphocytes 1.3 10^9/L Monocytes 0.6 10^9/L Eosinophils 0.0 10^9/L Basophils 0.0 10^9/L Manual Lymphocytes 17.5 % Manual Monocytes 8.2 % Manual Eosinophils 0.3 % Manual Basophils 0.4 % Test performed on May 31, 2020 10:02 BUN/Creatinine Ratio 23 Absolute Value Impression: Invasive moderately differentiated adenocarcinoma involving cecum per right hemicolectomy done on 09/05/2019 Final pathology report showed invasive moderately differentiated colonic adenocarcinoma involving cecum, ileocecal valve, appendiceal lumen. Neoplasm invades through the entire bowel wall into the pericolonic adipose tissue, focally involving inked serosal margins T4a 2 out of 24 lymph nodes positive for metastatic disease pN1 next Stage IIIB MSI/MMR status intact discussed with patient her disease status and treatment options. The case was also discussed with the pathologist regarding positive serosal margin mentioned in final pathology report. And he will review it again and get back to us in the meantime we elected to proceed with adjuvant chemotherapy, patient was concerned about copayments and based on cost and efficacy, oxaliplatin/capecitabine would be an appropriate choice. We'll consider oxaliplatin 130 mg/m??? every 3 weeks and Xeloda 850 mg/m??? twice a day day 1 through 14 and repeat every 21 days. We will consider minimum 4 cycles at least and if tolerated, will complete the recommended 8 cycles. She began her first cycle CapeOx on 11/07/2019. Unfortunately she developed severe toxicity to oxaliplatin: diarrhea, abdominal pain, generalized weakness and fatigue, palpitations and significant lower extremity edema. The oxaliplatin was discontinued after 1 dose and she was switched to Xeloda alone, 14 days on and then repeat every 21 days for 6 months on 11/29/2019. Ms Begum reports she underwent colonscopy on March 29, 2020 @ [facility] and it was normal. She began cycle 7 Xeloda on 04/26/2020. Plan: Discussed with patient regarding her labs white blood count 7.5 hemoglobin 14.4 hematocrit 40.7 platelets 133,000 CMP within normal limits Clinically, she is doing well with no new signs symptom suggestive of recurrence of disease, will continue to monitor and repeat her CBC CMP in 3 months Signed By: Erick Mckinney M.D. <<Signature on File>>
== END 2020-09-05 05:53 | disposition home or self-care (01) ==
LOC: ONCMED 05:54
PROVIDERS: PCP Family Medicine; Visit Provider Internal Medicine Hematology & Oncology
DX: Z08 Encounter for follow-up examination after completed treatment for malignant neoplasm (principal); Z85.038 Personal history of other malignant neoplasm of large intestine; Z90.49 Acquired absence of other specified parts of digestive tract; Z92.21 Personal history of antineoplastic chemotherapy

== ENCOUNTER 2021-05-01 05:49 | Outpatient (CLI) | payer MEDICARE, SELFPAY ==
--- NOTE | 2021-05-04 19:22 | ONC FU_ITS ---
Dr. Mckinney follow up note Patient: Meera Begum Unit #: [id number]: 1945 Dicatated By: Erick Mckinney M.D.Date of Visit:May 01, 2021 Onc Med Follow-up/Prog Note History of Present Illness: Mrs. Begum is a 75-year-old female who in August 2019, was admitted to [facility] in [facility] with abdominal pain and nausea. She had had a two history of dyspeptic symptoms as well as a gurgling sensation in the upper abdomen. She had some pain in the right upper quadrant as well. She presented with nausea but no vomiting or diarrhea. She states she had not had constipation prior to that admission and denied any dark tarry stools. She underwent evaluation in the emergency room, was found to have cholelithiasis however her CT of the abdomen pelvis showed masslike thickening at the ilio cecal valve. This was causing a proximal partial small bowel obstruction. surgery was consulted patient underwent colonoscopy on 09/04/2019, and she was found to have cecal mass and remaining exam was unremarkable. She did have a small bowel series on 09/02/2019. There was no evidence of significant small bowel obstruction as contrast passed from the stomach and small bowel into the colon within 1 hour (normal transit time is within 3 hours). The patient's known iliac mass was not well demonstrated on that study. A colonoscopy was recommended and performed to the cecum on 09/04/[address] Fernandez. Postop diagnosis was cecal mass. Dr. Fernandez recommended right hemicolectomy and an open cholecystectomy at the same time. Mrs. Begum underwent right hemicolectomy and ileocolonic anastomosis, cholecystectomy for cecal mass and cholelithiasis on 09/05/2019. On postop day 4 she still had no bowel sounds and was having some pain at the superior portion of her incision. She was diagnosed with postop ileus and TPN was started. Mrs. Begum was discharged from [facility] on September 15, 2019 with a discharge diagnosis of acute cholelithiasis, partial bowel obstruction secondary to cecal mass and transmural adenocarcinoma of the colon with 2+ lymph nodes. The pathology report from 09/05/2019 reports: cecum: Ascending colon and attached terminal ileum (Joaquin ileocolectomy) 1. Invasive moderately differentiated colonic adenocarcinoma involving the cecum, ileocecal valve and appendiceal lumen. 2 neoplasm invades to the entire bowel wall into the pericolonic adipose tissue, focally involving linked serosal margins. 3 proximal and distal margins of the resection are free of neoplasm. 4 large tubulovillous villous adenoma precursor lesion identified within the invasive tumor. 5. Lymph nodes pericolonic total of 24 were removed and 2 revealed metastatic adenocarcinoma. The gallbladder just showed chronic cholecystitis no evidence of malignancy. Colonic mucosa tissue and anastomosis 1. Benign segment of large bowel, clinically anastomotic tissue with no tumor seen. 2/24 lymph nodes were removed, showed metastatic disease. Tumor site was felt to be cecum/ileocecal valve. Specimen integrity was intact. Histological type was adenocarcinoma histological grade G2, moderately differentiated. Tumor extension tumor invades through the muscularis precordia. Margins invasive carcinoma involves the inked serosal surface of the cecal focally. Mucosal margins uninvolved by invasive adenocarcinoma 13 cm proximal and 20 cm to distal. Pathologic stage classification per the [facility] report on 09/05/2019 was pT4a, pN1, pMX. Her lab workup done on 09/13/2019 shows white blood count 8.4 hemoglobin 12.6 crit 38.9 platelets 193,000, CMP within normal limit except glucose 154. Because of posterior surgical margin, Mrs Begum was referred to radiation oncology and Dr. Ricks recommended radiation therapy after she completed her adjuvant chemotherapy. She was then referred to Dr Mckinney. did discuss this case with pathologist regarding positive serosal margin and and as per pathology, margins were clear.. He also requested Mismatch repair proteins on 10/10/2019.: MLH1 intact, MSH2 intact, MSH6 intact, PMS2 intact. Mrs Carbajal was offered treatment with oxliplatin and Xeloda. She had port placement on October 30, [address] Fernandez at [facility] She stated her first cycle on 11/07/2019. But with first dose of oxaliplatin, patient said she felt better for 2- 3 days and then developed abdomen pain and severe diarrhea and went to [facility] in [place], [place] she was diagnosed with urine tract infection, antibody was prescribed , as per patient she did not take antibiotic as she was feeling weak and tired having weakness in lower extremity along with palpitation. Then she went to [facility], but she was told she don't have urine tract infection, she may have stomach 'bug'. Subsequently she went to see her PMD, his impression was neither UTI or stomach bug. but With a concern regarding chemotherapy toxicity. The oxaliplatin was discontinued after 1st cycle of chemotherapy and she was switched to Xeloda alone on 12/20/2019 e.g. 2 weeks on 1 week off, for 6-8 cycles.Completed 8 cycles of modified Xeloda in May 2020 Follow-up colonoscopy done on March 29, 2020 in [facility] in [facility]. Ms Begum reports it was unremarkable. As per patient she underwent colonoscopy on April 28, 2021 and it was unremarkable and on April 24, [address] scan of abdomen ordered by her PMD and it was also unremarkable Evaluated via telephone,Patient denies any specific complaints, no fever chills, no nausea or vomiting, no diarrhea or constipation, no melena or hematochezia, no hemoptysis or hematemesis, off and on numbness in her fingertips otherwise no other new complaints and recently underwent colonoscopy and [facility] in [facility], as per patient it was unremarkable she also had CT scan of abdomen done prior to that on April 24, 2021 and as per patient it was also unremarkable. Medications: amLODIPine Besylate 1 Tablet (of 5 mg) Oral daily Allergies: Sulfa Antibiotics Review of Systems: Review of Systems is not available for this patient. Vital Signs: Vitals are not available for this patient. Performance Status: 0 - Fully active, able to carry on all predisease activities without restrictions. (ECOG) Physical Examination: Neck - Patient denies any mouth sores denies any jaundice denies any lymphadenopathy, Respiratory - Patient denies any shortness of breath or wheezing, Cardiovascular - Patient denies any chest pain or palpitation, Abdomen - Patient denies any abdominal pain or fullness, Extremities - Patient denies any lower extremity edema or rash. Lab/Imaging: Test performed on Apr 01, 2021 09:52 Glucose 96 mg/dL BUN 14 mg/dL Creatinine 0.6 mg/dL Cr Clearance (Est) 76.00 mL/min BUN/Creatinine Ratio 23 Absolute Value Sodium 144 mmol/L Potassium 3.9 mmol/L Chloride 109 mmol/L CO2 24 mmol/L Calcium 9.0 mg/dL Protein, Total 7.6 g/dL Albumin 4.6 g/dL A/G Ratio 1.5 Absolute Value Bilirubin, Total 0.7 mg/dL Alkaline Phosphatase 79 IU/L AST (SGOT) 29 IU/L ALT (SGPT) 17 IU/L Test performed on Mar 31, 2021 11:03 WBC 5.6 10^9/L RBC 4.24 10^12/L HGB 14.3 g/dL HCT 42.8 % MCV 100.9 fl MCH 33.7 pg MCHC 33 g/dL RDW 11.9 % Platelet Count 142 10^9/L MPV 10.8 fL Neutrophils (Gran) 4.0 10^9/L Lymphocytes 1.2 10^9/L Monocytes 0.4 10^9/L Eosinophils 0.0 10^9/L Basophils 0.0 10^9/L Manual Bands 71.5 % Manual Lymphocytes 21.2 % Manual Monocytes 6.5 % Manual Eosinophils 0.2 % Manual Basophils 0.4 % Impression: Invasive moderately differentiated adenocarcinoma involving cecum per right hemicolectomy done on 09/05/2019 Final pathology report showed invasive moderately differentiated colonic adenocarcinoma involving cecum, ileocecal valve, appendiceal lumen. Neoplasm invades through the entire bowel wall into the pericolonic adipose tissue, focally involving inked serosal margins T4a 2 out of 24 lymph nodes positive for metastatic disease pN1 next Stage IIIB MSI/MMR status intact discussed with patient her disease status and treatment options. The case was also discussed with the pathologist regarding positive serosal margin mentioned in final pathology report. And he will review it again and get back to us in the meantime we elected to proceed with adjuvant chemotherapy, patient was concerned about copayments and based on cost and efficacy, oxaliplatin/capecitabine would be an appropriate choice. We'll consider oxaliplatin 130 mg/m??? every 3 weeks and Xeloda 850 mg/m??? twice a day day 1 through 14 and repeat every 21 days. We will consider minimum 4 cycles at least and if tolerated, will complete the recommended 8 cycles. She began her first cycle CapeOx on 11/07/2019. Unfortunately she developed severe toxicity to oxaliplatin: diarrhea, abdominal pain, generalized weakness and fatigue, palpitations and significant lower extremity edema. The oxaliplatin was discontinued after 1 dose and she was switched to Xeloda alone, 14 days on and then repeat every 21 days for 6 months on 11/29/2019. Ms Begum reports she underwent colonscopy on March 29, 2020 @ [facility] and it was normal. She began cycle 7 Xeloda on 04/26/2020. Follow-up colonoscopy done on April 28, 2021, as per patient was unremarkable Follow-up CT scan of abdomen done on April 24, 2021, as per patient it was unremarkable, both procedures were done in [facility], [facility] Plan: Discussed with shirin Via telephone regarding her labs done in [facility] in [facility] on April 24, 2021 which shows CEA was 2.1, CMP within normal limits and white blood count 6 hemoglobin 15 hematocrit 45.1 platelets 157,000 Clinically, patient doing well with no new signs symptoms history of recurrence of disease, as per patient recently underwent colonoscopy and CT scan of abdomen both were unremarkable, we will obtain records from [facility] and review. We will continue to observe and issue return to clinic in 4 months with CBC CMP and CEA Signed By: Erick Mckinney M.D. <<Signature on File>>
== END 2021-05-01 05:50 | disposition home or self-care (01) ==
LOC: ONCMED 05:50
PROVIDERS: PCP Family Medicine; Visit Provider Internal Medicine Hematology & Oncology
DX: C18.0 Malignant neoplasm of cecum (principal); Z79.899 Other long term (current) drug therapy
CPT/HCPCS: 99214

== ENCOUNTER 2021-09-08 06:00 | Outpatient (CLI) | payer MEDICARE, SELFPAY ==
--- NOTE | 2021-09-12 09:12 | ONC FU_ITS ---
Dr. Mckinney follow up note Patient: Meera Begum Unit #: [id number]: 1945 Dicatated By: Erick Mckinney M.D.Date of Visit:Sep 08, 2021 Onc Med Follow-up/Prog Note History of Present Illness: Mrs. Begum is a 75-year-old female who in August 2019, was admitted to [facility] in [facility] with abdominal pain and nausea. She had had a two history of dyspeptic symptoms as well as a gurgling sensation in the upper abdomen. She had some pain in the right upper quadrant as well. She presented with nausea but no vomiting or diarrhea. She states she had not had constipation prior to that admission and denied any dark tarry stools. She underwent evaluation in the emergency room, was found to have cholelithiasis however her CT of the abdomen pelvis showed masslike thickening at the ilio cecal valve. This was causing a proximal partial small bowel obstruction. surgery was consulted patient underwent colonoscopy on 09/04/2019, and she was found to have cecal mass and remaining exam was unremarkable. She did have a small bowel series on 09/02/2019. There was no evidence of significant small bowel obstruction as contrast passed from the stomach and small bowel into the colon within 1 hour (normal transit time is within 3 hours). The patient's known iliac mass was not well demonstrated on that study. A colonoscopy was recommended and performed to the cecum on 09/04/[address] Fernandez. Postop diagnosis was cecal mass. Dr. Fernandez recommended right hemicolectomy and an open cholecystectomy at the same time. Mrs. Begum underwent right hemicolectomy and ileocolonic anastomosis, cholecystectomy for cecal mass and cholelithiasis on 09/05/2019. On postop day 4 she still had no bowel sounds and was having some pain at the superior portion of her incision. She was diagnosed with postop ileus and TPN was started. Mrs. Begum was discharged from [facility] on September 15, 2019 with a discharge diagnosis of acute cholelithiasis, partial bowel obstruction secondary to cecal mass and transmural adenocarcinoma of the colon with 2+ lymph nodes. The pathology report from 09/05/2019 reports: cecum: Ascending colon and attached terminal ileum (Joaquin ileocolectomy) 1. Invasive moderately differentiated colonic adenocarcinoma involving the cecum, ileocecal valve and appendiceal lumen. 2 neoplasm invades to the entire bowel wall into the pericolonic adipose tissue, focally involving linked serosal margins. 3 proximal and distal margins of the resection are free of neoplasm. 4 large tubulovillous villous adenoma precursor lesion identified within the invasive tumor. 5. Lymph nodes pericolonic total of 24 were removed and 2 revealed metastatic adenocarcinoma. The gallbladder just showed chronic cholecystitis no evidence of malignancy. Colonic mucosa tissue and anastomosis 1. Benign segment of large bowel, clinically anastomotic tissue with no tumor seen. 2/24 lymph nodes were removed, showed metastatic disease. Tumor site was felt to be cecum/ileocecal valve. Specimen integrity was intact. Histological type was adenocarcinoma histological grade G2, moderately differentiated. Tumor extension tumor invades through the muscularis precordia. Margins invasive carcinoma involves the inked serosal surface of the cecal focally. Mucosal margins uninvolved by invasive adenocarcinoma 13 cm proximal and 20 cm to distal. Pathologic stage classification per the [facility] report on 09/05/2019 was pT4a, pN1, pMX. Her lab workup done on 09/13/2019 shows white blood count 8.4 hemoglobin 12.6 crit 38.9 platelets 193,000, CMP within normal limit except glucose 154. Because of posterior surgical margin, Mrs Begum was referred to radiation oncology and Dr. Ricks recommended radiation therapy after she completed her adjuvant chemotherapy. She was then referred to Dr Mckinney. did discuss this case with pathologist regarding positive serosal margin and and as per pathology, margins were clear.. He also requested Mismatch repair proteins on 10/10/2019.: MLH1 intact, MSH2 intact, MSH6 intact, PMS2 intact. Mrs Carbajal was offered treatment with oxliplatin and Xeloda. She had port placement on October 30, [address] Fernandez at [facility] She stated her first cycle on 11/07/2019. But with first dose of oxaliplatin, patient said she felt better for 2- 3 days and then developed abdomen pain and severe diarrhea and went to [facility] in [place], [place] she was diagnosed with urine tract infection, antibody was prescribed , as per patient she did not take antibiotic as she was feeling weak and tired having weakness in lower extremity along with palpitation. Then she went to [facility], but she was told she don't have urine tract infection, she may have stomach 'bug'. Subsequently she went to see her PMD, his impression was neither UTI or stomach bug. but With a concern regarding chemotherapy toxicity. The oxaliplatin was discontinued after 1st cycle of chemotherapy and she was switched to Xeloda alone on 12/20/2019 e.g. 2 weeks on 1 week off, for 6-8 cycles.Completed 8 cycles of modified Xeloda in May 2020 Follow-up colonoscopy done on March 29, 2020 in [facility] in [facility]. Ms Begum reports it was unremarkable. As per patient she underwent colonoscopy on April 28, 2021 and it was unremarkable and on April 24, [address] scan of abdomen ordered by her PMD and it was also unremarkableCT scan of abdomen pelvis done on April 24, 2021 shows surgical removal of previous identified ileocolic mass. Right-sided subcentimeter soft tissue nodularity in the lung requiring continued surveillance Evaluated via telephone,.Denies any specific complaints, no fever chills, no nausea or vomiting, no diarrhea or constipation, no melena or hematochezia, no jaundice, no abdominal pain, appetite is good, still has persistent mild peripheral neuropathy,. Patient said she has got Port-A-Cath removed in April 2021. Medications: amLODIPine Besylate 1 Tablet (of 5 mg) Oral daily Allergies: Sulfa Antibiotics Review of Systems: Review of Systems is not available for this patient. Vital Signs: Vitals are not available for this patient. Performance Status: 0 - Fully active, able to carry on all predisease activities without restrictions. (ECOG) Physical Examination: ENMT - Patient denies mouth sores thrush or jaundice, Respiratory - Denies any shortness of breath, Cardiovascular - Denies any palpitation, Abdomen - Denies any abdominal pain or fullness, Extremities - Denies any lower extremity edema. Lab/Imaging: Test performed on Aug 26, 2021 10:59 Glucose 117 mg/dL BUN 13 mg/dL Creatinine 0.6 mg/dL Cr Clearance (Est) 76.00 mL/min Sodium 143 mmol/L Potassium 3.9 mmol/L Chloride 106 mmol/L CO2 25 mmol/L Calcium 10.5 mg/dL Protein, Total 8.7 g/dL Albumin 5 g/dL Bilirubin, Total 1.0 mg/dL Alkaline Phosphatase 84 International Units/L AST (SGOT) 44 International Units/L ALT (SGPT) 25 International Units/L WBC 5.5 10^9/L RBC 4.66 10^12/L HGB 15.9 g/dL HCT 47.1 % MCV 101.1 fl MCH 34.1 pg MCHC 34 g/dL RDW 11.8 % Platelet Count 152 10^9/L Neutrophils (Gran) 4.1 10^9/L Lymphocytes 1.1 10^9/L Monocytes 0.3 10^9/L Eosinophils 0 10^9/L Basophils 0 10^9/L CEA 2.2 ng/mL Test performed on Apr 01, 2021 09:52 BUN/Creatinine Ratio 23 Absolute Value A/G Ratio 1.5 Absolute Value Test performed on Mar 31, 2021 11:03 MPV 10.8 fL Manual Bands 71.5 % Manual Lymphocytes 21.2 % Manual Monocytes 6.5 % Manual Eosinophils 0.2 % Manual Basophils 0.4 % Impression: Invasive moderately differentiated adenocarcinoma involving cecum per right hemicolectomy done on 09/05/2019 Final pathology report showed invasive moderately differentiated colonic adenocarcinoma involving cecum, ileocecal valve, appendiceal lumen. Neoplasm invades through the entire bowel wall into the pericolonic adipose tissue, focally involving inked serosal margins T4a 2 out of 24 lymph nodes positive for metastatic disease pN1 next Stage IIIB MSI/MMR status intact discussed with patient her disease status and treatment options. The case was also discussed with the pathologist regarding positive serosal margin mentioned in final pathology report. And he will review it again and get back to us in the meantime we elected to proceed with adjuvant chemotherapy, patient was concerned about copayments and based on cost and efficacy, oxaliplatin/capecitabine would be an appropriate choice. We'll consider oxaliplatin 130 mg/m??? every 3 weeks and Xeloda 850 mg/m??? twice a day day 1 through 14 and repeat every 21 days. We will consider minimum 4 cycles at least and if tolerated, will complete the recommended 8 cycles. She began her first cycle CapeOx on 11/07/2019. Unfortunately she developed severe toxicity to oxaliplatin: diarrhea, abdominal pain, generalized weakness and fatigue, palpitations and significant lower extremity edema. The oxaliplatin was discontinued after 1 dose and she was switched to Xeloda alone, 14 days on and then repeat every 21 days for 6 months on 11/29/2019. Ms Begum reports she underwent colonscopy on March 29, 2020 @ [facility] and it was normal. She began cycle 7 Xeloda on 04/26/2020. Follow-up colonoscopy done on April 28, 2021, as per patient was unremarkable Follow-up CT scan of abdomen done on April 24, 2021, as per patient it was unremarkable, both procedures were done in [facility] reviewed which shows no evidence of recurrence of disease, lungs demonstrate nodular densities in the right upper lobe, subpleural density in the right upper lobe and lower lobes, findings are nonspecific Plan: Discussed with patient regarding her labs white blood count 5.5 hemoglobin 15.9 hematocrit 47.1 platelets 152,000 CMP within normal limits, CEA 2.2 Clinically, patient doing well with no new signs suggestive of recurrence of disease her lab work-up is within normal range, will continue to monitor and repeat her CBC CMP and CEA in 6 months. As far as stable right lung subcentimeter nodules is concerned, will monitor, repeat CT scan of chest and upper abdomen in 6 months. Signed By: Erick Mckinney M.D. <<Signature on File>>
== END 2021-09-08 06:01 | disposition home or self-care (01) ==
LOC: ONCMED 17:36
PROVIDERS: PCP Family Medicine; Visit Provider Internal Medicine Hematology & Oncology
DX: Z08 Encounter for follow-up examination after completed treatment for malignant neoplasm (principal); Z85.038 Personal history of other malignant neoplasm of large intestine; Z92.21 Personal history of antineoplastic chemotherapy
CPT/HCPCS: G0463